=== PATIENT | female | born 1940 | race Hispanic/Latino ===

== ENCOUNTER 2017-11-11 19:44 | Inpatient (IN) | payer MEDICARE, BC ==
--- NOTE | 2017-11-11 20:05 | ED PDOC ---
Psych Transfer Clearance - Clearance Statement Clearance Statement: Reviewed vital signs. Lab results and transfer papers reviewed by Dr Fields, who cleared for transfer on previous shift. Patient clinically stable for psychiatric admission.
[2017-11-11] MEDS ORDERED: Bismuth Subsalicylate 262 mg/15 ml Sus (240 ml) PO PRN (20:44)
[2017-11-11] MEDS ORDERED: Magnesium Hydroxide Susp 30 ml UD PO PRN (20:44)
--- NOTE | 2017-11-11 20:58 | PCM.BM ---
<Cassie Nye P - Last Filed: 11/11/17 20:59> Treatment Plan Problems - Problems identified on initial assessmt Agitated/aggressive behavior Date Initiated: 11/11/17 Time Initiated: 20:55 Assessment reference: NA Status: Active Medication nonadherence Date Initiated: 11/11/17 Time Initiated: 20:58 Assessment reference: NA Status: Active Treatment assets and liabiliti Patient Liabilities: poor support system, imparied memory - Milieu Protocol Maintain good personal hygiene: daily Encourage regular showers, daily Remind patient to perform daily oral care, daily Assist patient to perform ADL's Conduct patient checks and document Observation sheet: Q15 minutes Maintain personal safety: every shift Educate patient to report safety concerns to staff, every shift Monitor environment for contraband/sharps Medication safety: Monitor for expected outcome, potential side effects: every shift, Assess barriers to learning: every shift, Assess readiness for medication education: every shift <Orly Mathur - Last Filed: 11/12/17 08:08> - Diagnosis (1) Dementia with behavioral disturbance Status: Acute Interventions: Medication management, Individual and group therapy, Psychoeducation 11/12/17 08:08 <Allyson Barton M - Last Filed: 11/12/17 12:14> Family Contact Family contact: Patient agrees to contact, Family has been contacted by patient , Telephone contact initiated by staff Family contact name: Aguilar Fernandez (Legal Guardian) Family contacted how many times per week?: 2 Family contact comment: [phone] - Outside Agency [facility][Note 3] involvment: Information-sharing Agency contact number: - Goals for Treatment Patient goals for treatment: Pt to be encouraged to attend activity and clinical groups 3-5x per week to identify at least 2 contributing factors to increased agitation, irritability, and aggression. Psycho-education to be provided to patient/family regarding benefits of medications and treatment adherence. Pt to be encouraged to participate in group milieu to develop effective coping skills to reduce aggression and reduce psychiatric hospitalizations. Coordinate discharge resource needs by providing referral for psychiatric treatment follow up in the community. Discharge/Continuing Care - Education Needs Education Needs: Family Medication, Family Diagnosis/Disease Process, Family Coping Skills, Family Placement options, Family Community resources, Family Activities of Daily Living, Family Uses of Medical Equipment, Family Personal Hygiene/Grooming, Family Aftercare Safety Plan, Patient Coping Skills, Patient Uses of Medical Equipment, Patient Personal Hygiene/Grooming, Patient Aftercare Safety Plan - Discharge Discharge Criteria: Tolerates medication w/o severe side effects, Free of agitation, Normal sleep pattern, Ability to care for self, Reduction of target symptoms Discharge to:: Alf - Additional Comments 11/12/17 11:33 Pt discussed in team meeting. Initially pt was agreeable to attend team meeting ; pt assisted by RN, Melinda Hernandez and once pt entered the room pt stated "I wish you the best of luck and thank you for being polite polite." Pt refused to sit down and requested to be brought back to her room. Pt exited room with the assistance of RN. Reason for hospitalization reviewed. Pt's social and medical issues reviewed. Pt's medications reviewed. Tx plan reviewed and discussed. SW to contact legal guardian. SW to continue to follow case. - Treatment Team Participation Discussed with Family/SO: No Was Patient/Family/SO present at Treatment Team Meeting: Yes
[2017-11-11 23:57] LABS: URINE BACTERIA FEW (<OCC); URINE BILIRUBIN NEGATIVE (NEGATIVE); URINE BLOOD MODERATE (NEGATIVE); URINE CLARITY TURBID (Clear); URINE COLOR YELLOW (YELLOW); URINE GLUCOSE (UA) NEG (Normal); URINE LEUKOCYTE ESTERASE LARGE Leu/uL (Negative); URINE PROTEIN 30 mg/dL (NEGATIVE); WBC CLUMPS MANY /hpf
--- NOTE | 2017-11-12 08:08 | PCM.PSYCH ---
Initial Psychiatric Evaluation - Initial Psychiatric Evaluation Type of Admission: Voluntary Legal Status: DPOA Chief Complaint (in patient's own words): Behavioral disturbances Patient's Reaction to Hospitalization: History obtained from chart; patient is a poor historian and unwilling to talk w / continuity writer HPI: 77 yo female w/ h/o dementia, transferred from [facility] where she was sent from [facility] due to worsening agitation, aggression and attempting to elope from the home. At this time, patient is irritable w/ continuity writer, refusing to speak w/ continuity writer, stating that continuity writer should not have woken her up and that she does not speak w/ strangers. PPHx: H/o Dementia, currently being treated w/ Aricept 5 mg PO HS and Seroquel 25 mg PO HS PMHx: Seizure d/o, h/o recurrent falls, HLD, GERD, +Current UTI ALL: Latex, Cats SHx: Resident at retirement, has POA Current Medications: Active Medications Generic Name Dose Route Start Last Admin Trade Name Freq PRN Reason Stop Dose Admin Acetaminophen 650 mg 11/11/17 20:44 Tylenol 325mg Tab PO Q4 PRN Pain, moderate (4-7) Al Hydrox/Mg Hydrox/Simethicone 30 ml 11/11/17 20:44 Maalox Plus 30 Ml PO Q4 PRN Dyspepsia Anastrozole 1 mg 11/12/17 09:00 Arimidex 1 Mg Tab PO DAILY TIFFANIE Aspirin 81 mg 11/12/17 09:00 Ecotrin PO DAILY TIFFANIE Atorvastatin Calcium 40 mg 11/11/17 22:00 11/11/17 21:44 Lipitor PO Not Given HS TIFFANIE Bismuth Subsalicylate 524 mg 11/11/17 20:44 Pepto-Bismol PO Q4 PRN Diarrhea Donepezil HCl 5 mg 11/11/17 22:00 11/11/17 21:44 Aricept PO Not Given HS TIFFANIE Levetiracetam 750 mg 11/12/17 09:00 Keppra PO BID TIFFANIE Lorazepam 0.5 mg 11/11/17 20:43 Ativan IM Q6H PRN for severe agitation Lorazepam 0.5 mg 11/11/17 20:44 Ativan PO 11/25/17 20:45 HS PRN Insomnia Lorazepam 0.5 mg 11/11/17 20:44 Ativan PO 11/25/17 20:45 Q6 PRN Anixety/Agitation Magnesium Hydroxide 30 ml 11/11/17 20:44 Milk Of Magnesia PO HS PRN Constipation Pantoprazole Sodium 40 mg 11/12/17 09:00 Protonix Ec Tab PO DAILY TIFFANIE Trazodone HCl 50 mg 11/11/17 22:00 11/11/17 21:14 Desyrel PO 50 mg HS TIFFANIE Administration Trimethoprim/Sulfamethoxazole 1 tab 11/12/17 09:00 Bactrim Ds Tab PO Q12 TIFFANIE Protocol Past Psychiatric History - Past Psychiatric History Pertinent Medical Hx (Current Medical&Sleep Prob, Allergies): Allergies Allergy/AdvReac Type Severity Reaction Status Date / Time latex Allergy Verified 03/22/17 13:01 CATS Allergy Uncoded 03/22/17 13:01 Anastrozole [Arimidex 1 mg Tab] 1 mg PO DAILY tab 03/26/17 Donepezil [Aricept] 5 mg PO HS tab 03/26/17 QUEtiapine [Seroquel] 25 mg PO HS tab 03/26/17 Aspirin [Ecotrin] 81 mg PO DAILY #30 tabec 08/13/17 Rosuvastatin Calcium [Crestor] 20 mg PO HS #30 tab 08/13/17 Pantoprazole [Protonix EC Tab] 40 mg PO DAILY ect 11/10/17 levETIRAcetam [Keppra] 750 mg PO BID tab 11/10/17 Review of Systems - Psychiatric Psychiatric: As Per HPI, Confusion, Difficulty Concentrating, Irritability, Memory Loss, Mood Swings, Other (Agitation/aggression) Mental Status Examination - Personal Presentation Personal Presentation: Looks stated age - Affect Affect: Constricted, Other (Irritable) - Motor Activity Motor Activity: Calm - Reliability in Providing Information Reliability in Providing Information: Poor, due to cognitve impairment - Speech Speech: Coherent - Mood Mood: Other (Irritated) - Formal Thought Process Formal Thought Process: Loosening of associations - Hallucinations/Delusions Additional comments: Denies AH/VH - Obsessions/Compulsions Obsessions: No Compulsions: No - Cognitive Functions Orientation: Person Attention/Concentration: Easily distracted Judgement: Imparied, as evidence by: Poor judgement, Imparied, as evidence by: Lack of insight into illness Memory: Recent impaired, as evidence by: Inability to recall events of the day, Recent imparied as evidence by:Inability to complete 3/3 object recall, Remote impaired as evidenced by: Inability to recall sig life events, Remote impaired as evidenced by: Inability to recall historical events - Risk Risk: Diminished functioning - Strength & Assets Inventory Strength & Assets Inventory: Life experience - Limitations Limitations: Decreased memory, recent DSM 5 DX - DSM 5 DSM 5 Diagnosis: Dementia w/ Behavioral Disturbances - Recommended/Plan of Treatment Treatment Recommendations and Plan of Treatment: Dementia w/ Behavioral Disturbances; Behavioral disturbances could be exacerbated by acute UTI -Admit to geriatric psychiatry unit -Individual and group therapy -Obtain collateral history -Psychoeducation -Continue Aricept -Increase Seroquel to 50 mg PO HS -Medicine consult; patient on treatment for UTI -Disposition planning Projected ELOS: 7-10 days Discharge Plan and Discharge Criteria: Discharge when patient is psychiatrically stable - Smoking Cessation Smoking Cessation Initiated: No Reason for not providing: Not indicated
[2017-11-12] MEDS ORDERED: RISPERIDONE 0.25 MG ODT PO PRN (10:00)
[2017-11-12] MEDS: Pantoprazole 40 mg EC Tab PO SCH (10:39)
[2017-11-12] MEDS: Tmp-Smz 800 mg-160 mg DS Tab PO SCH ×3 (10:40→21:38)
[2017-11-13] MEDS: Tmp-Smz 800 mg-160 mg DS Tab PO SCH ×2 (10:50→21:00)
[2017-11-13] MEDS: Pantoprazole 40 mg EC Tab PO SCH (10:51)
--- NOTE | 2017-11-13 12:56 | PCM.PYCHPN ---
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 Medication Change: No Medical Record Reviewed: Yes Mental Status Examination - Cognitive Function Orientation: Person Memory: Impaired Attention: WNL Concentration: Poor Association: Loose Decription of patient's judgement and insights: poor insight - Mood Mood: Neutral, Other (Irritated) - Affect Affect: Constricted, Other (Irritable) - Speech Additional comments: over productive - Formal Thought Process Formal Thought Process: Loosening of associations Psychotic Thoughts and Behaviors: pt denied perceptual disturbances, non elicited - Suicidal Ideation Suicidal Ideation: No - Homicidal Ideation Homicidal Ideation: No Goal/Treatment Plan - Goal/Treatment Plan Need for Continued Stay: Remain at risks for inpatient hospitalization, Discharge may exacerbated symptoms, Severe functional impairment Progress Toward Problem(s) and Goals/Treatment Plan: continue current medications' group and supportive therapy
[2017-11-14] MEDS: Tmp-Smz 800 mg-160 mg DS Tab PO SCH ×2 (08:10→21:01)
[2017-11-14] MEDS: Pantoprazole 40 mg EC Tab PO SCH (08:11)
--- NOTE | 2017-11-14 14:19 | PCM.PYCHPN ---
Psychiatric Progress Note - Psychiatric Progress Note Patient seen today, length of contact: pt evaluated discussed with team chart reviewed Patient Chief Complaint: I am eating breakfast Problems Identified/Issues Discussed: pt seen in bed, apparently confused , oriented to person only , reported by staff last evening to be irritable,trying to get out of be and wander , possible sundowning during , no noted side effectsof medications, with partial compliance DSM 5 Symptoms Update: Major neurocognitive disorder Moderate to severe Medication Change: No Medical Record Reviewed: Yes Mental Status Examination - Cognitive Function Orientation: Person Memory: Impaired Attention: WNL Concentration: Poor Association: Loose Decription of patient's judgement and insights: poor insight - Mood Mood: Neutral, Other (Irritated) - Affect Affect: Constricted, Other (Irritable) - Formal Thought Process Formal Thought Process: Loosening of associations Psychotic Thoughts and Behaviors: pt denied perceptual disturbances, non elicited - Suicidal Ideation Suicidal Ideation: No - Homicidal Ideation Homicidal Ideation: No Goal/Treatment Plan - Goal/Treatment Plan Need for Continued Stay: Remain at risks for inpatient hospitalization, Discharge may exacerbated symptoms, Severe functional impairment Progress Toward Problem(s) and Goals/Treatment Plan: continuewith seroquel 50mg qhs discontinue risperidone and start seroquel 12.5mg q12 prn group and supportive therapy
[2017-11-14] MEDS: Divalproex 125 mg Sprinkle Capsule PO SCH (16:07)
[2017-11-15] MEDS: Divalproex 125 mg Sprinkle Capsule PO SCH ×2 (08:22→16:18)
[2017-11-15] MEDS: Tmp-Smz 800 mg-160 mg DS Tab PO SCH ×2 (08:22→23:57)
[2017-11-15] MEDS: Pantoprazole 40 mg EC Tab PO SCH (08:24)
--- NOTE | 2017-11-15 10:00 | PCM.PYCHPN ---
Psychiatric Progress Note - Psychiatric Progress Note Patient seen today, length of contact: Patient evaluated, case discussed with team, chart reviewed Patient Chief Complaint: Behavioral disturbances Problems Identified/Issues Discussed: Patient continues to be irritable and labile. She is not cooperative with interview and difficult to redirect at times. She has chronic poor insight/ judgment due to dementia Medication Change: No Medical Record Reviewed: Yes Consults ordered or reviewed: Medicine consult Mental Status Examination - Cognitive Function Orientation: Person Memory: Impaired Attention: Poor Concentration: Poor Association: Loose Fund of Knowledge: Poor Decription of patient's judgement and insights: Poor I/J - Mood Mood: Neutral - Affect Affect: Constricted - Speech Speech: Appropriate - Formal Thought Process Formal Thought Process: Loosening of associations Psychotic Thoughts and Behaviors: NO AH/VH - Suicidal Ideation Suicidal Ideation: No - Homicidal Ideation Homicidal Ideation: No Goal/Treatment Plan - Goal/Treatment Plan Need for Continued Stay: Remain at risks for inpatient hospitalization, Discharge may exacerbated symptoms, Severe functional impairment Progress Toward Problem(s) and Goals/Treatment Plan: Dementia w/ Behavioral Disturbances; Behavioral disturbances could be exacerbated by acute UTI -Individual and group therapy -Psychoeducation -Continue Aricept 5 mg PO HS -Continue Seroquel to 50 mg PO HS -Continue Depakote 125 mg PO BID; will titrate as clinically indicated -Continue Trazodone 50 mg PO HS -Medicine consult; patient on treatment for UTI -Disposition planning Estimated Date of D/C: 11/19/17
--- NOTE | 2017-11-15 12:09 | CP.PCM.CON ---
History of Present Illness - History of Present Illness History of Present Illness: 77 yo female with history of dementia admitted to [facility] because of agitation. Patient was seen at [facility] after she was sent from [facility]. Patient refused further interview claiming every thing was in her record. Review of Systems - Review of Systems Systems not reviewed;Unavailable: Dementia, Uncooperative Past Patient History - Infectious Disease Hx of Infectious Diseases: None - Past Medical History & Family History Past Medical History?: Yes - Past Social History Smoking Status: Never Smoked Alcohol: None Drugs: Denies Home Situation {Lives}: Half-Way - CARDIAC Hx Cardiac Disorders: No Hx Hypertension: No - PULMONARY Hx Tuberculosis: No - NEUROLOGICAL Hx Seizures: Yes (epilepsy) - HEENT Hx HEENT Problems: Yes Hx Cataracts: Yes - RENAL Hx Chronic Kidney Disease: No - ENDOCRINE/METABOLIC Hx Endocrine Disorders: No - HEMATOLOGICAL/ONCOLOGICAL Hx Cancer: No Hx Human Immunodeficiency Virus (HIV): No - INTEGUMENTARY Hx Dermatological Problems: No - MUSCULOSKELETAL/RHEUMATOLOGICAL Hx Falls: Yes - GASTROINTESTINAL Hx Gastrointestinal Disorders: No - GENITOURINARY/GYNECOLOGICAL Hx Sexually Transmitted Disorders: No - PSYCHIATRIC Hx Anxiety: Yes Hx Substance Use: No - SURGICAL HISTORY Hx Surgeries: Yes Hx Cataract Extraction: Yes (CATARACT EXT LEFT EYE WITH IOLI) Hx Mastectomy: Yes (LUMPECTOMY LEFT BREAST) Hx Tubal Ligation: Yes - ANESTHESIA Hx Anesthesia: Yes Hx Anesthesia Reactions: No Hx Malignant Hyperthermia: No Meds Allergies/Adverse Reactions: Allergies Allergy/AdvReac Type Severity Reaction Status Date / Time latex Allergy Verified 03/22/17 13:01 CATS Allergy Uncoded 03/22/17 13:01 - Medications Medications: Current Medications Acetaminophen (Tylenol 325mg Tab) 650 mg PO Q4 PRN PRN Reason: Pain, moderate (4-7) Al Hydrox/Mg Hydrox/Simethicone (Maalox Plus 30 Ml) 30 ml PO Q4 PRN PRN Reason: Dyspepsia Anastrozole (Arimidex 1 Mg Tab) 1 mg PO DAILY [facility] Last Admin: 11/15/17 08:26 Dose: 1 mg Aspirin (Ecotrin) 81 mg PO DAILY [facility] Last Admin: 11/15/17 08:22 Dose: 81 mg Atorvastatin Calcium (Lipitor) 40 mg PO HS [facility] Last Admin: 11/14/17 21:01 Dose: 40 mg Bismuth Subsalicylate (Pepto-Bismol) 524 mg PO Q4 PRN PRN Reason: Diarrhea Divalproex Sodium (Depakote Sprinkles) 125 mg PO BID [facility] Last Admin: 11/15/17 08:22 Dose: 125 mg Donepezil HCl (Aricept) 5 mg PO HS [facility] Last Admin: 11/14/17 21:01 Dose: 5 mg Levetiracetam (Keppra) 750 mg PO BID [facility] Last Admin: 11/15/17 08:21 Dose: 750 mg Lorazepam (Ativan) 0.5 mg IM Q6H PRN PRN Reason: for severe agitation Lorazepam (Ativan) 0.5 mg PO HS PRN PRN Reason: Insomnia Stop: 11/25/17 20:45 Lorazepam (Ativan) 0.5 mg PO Q6 PRN PRN Reason: Anixety/Agitation Stop: 11/25/17 20:45 Last Admin: 11/15/17 08:30 Dose: 0.5 mg Magnesium Hydroxide (Milk Of Magnesia) 30 ml PO HS PRN PRN Reason: Constipation Pantoprazole Sodium (Protonix Ec Tab) 40 mg PO DAILY [facility] Last Admin: 11/15/17 08:24 Dose: 40 mg Quetiapine Fumarate (Seroquel) 50 mg PO [facility] Last Admin: 11/14/17 21:01 Dose: 50 mg Trazodone HCl (Desyrel) 50 mg PO [facility] Last Admin: 11/14/17 21:01 Dose: 50 mg Trimethoprim/Sulfamethoxazole (Bactrim Ds Tab) 1 tab PO Q12 [facility] PRN Reason: Protocol Last Admin: 11/15/17 08:22 Dose: 1 tab Physical Exam - Constitutional Appears: No Acute Distress - Head Exam Head Exam: ATRAUMATIC - Eye Exam Eye Exam: absent: Scleral icterus - ENT Exam ENT Exam: Mucous Membranes Moist - Neck Exam Neck exam: Negative for: Meningismus - Respiratory Exam Respiratory Exam: absent: Rales, Rhonchi, Wheezes, Respiratory Distress - Cardiovascular Exam Cardiovascular Exam: REGULAR RHYTHM, +S1, +S2 - GI/Abdominal Exam GI & Abdominal Exam: Soft. absent: Tenderness - Rectal Exam Rectal Exam: Deferred - Back Exam Back exam: absent: tenderness - Neurological Exam Neurological exam: Alert - Psychiatric Exam Psychiatric exam: Normal Affect - Skin Skin Exam: Dry, Intact Results - Vital Signs Recent Vital Signs: Last Vital Signs Temp 96.6 F L 11/15/17 05:23 Pulse 76 11/15/17 05:23 Resp 18 11/15/17 05:23 BP 124/63 11/15/17 05:23 Pulse Ox 100 11/11/17 20:27 Assessment & Plan (1) Dementia with behavioral disturbance Status: Acute Comment: psyche is managing (2) UTI (urinary tract infection) Status: Acute Comment: Cipro 500mg PO BID
--- NOTE | 2017-11-16 09:00 | PCM.PYCHPN ---
Psychiatric Progress Note - Psychiatric Progress Note Patient seen today, length of contact: Patient evaluated, case discussed with team, chart reviewed Patient Chief Complaint: Behavioral disturbances Problems Identified/Issues Discussed: Patient continues to be irritable and labile. She does not want to talk w/ instructional writer. She has chronic poor insight/judgment due to dementia. Medication Change: Yes (Increase Depakote to 250 mg PO BID) Medical Record Reviewed: Yes Consults ordered or reviewed: Medicine consult Mental Status Examination - Cognitive Function Orientation: Person Memory: Impaired Attention: Poor Concentration: Poor Association: Loose Fund of Knowledge: Poor Decription of patient's judgement and insights: Poor I/J - Mood Mood: Neutral - Affect Affect: Constricted - Speech Speech: Appropriate - Formal Thought Process Formal Thought Process: Loosening of associations Psychotic Thoughts and Behaviors: NO AH/VH - Suicidal Ideation Suicidal Ideation: No - Homicidal Ideation Homicidal Ideation: No Goal/Treatment Plan - Goal/Treatment Plan Need for Continued Stay: Remain at risks for inpatient hospitalization, Discharge may exacerbated symptoms, Severe functional impairment Progress Toward Problem(s) and Goals/Treatment Plan: Dementia w/ Behavioral Disturbances; Behavioral disturbances could be exacerbated by acute UTI -Individual and group therapy -Psychoeducation -Continue Aricept 5 mg PO HS -Stop Seroquel; will continue to monitor if Seroquel is needed as Depakote continues to be titrated -Increase Depakote to 250 mg PO BID, will check VPA level 11/19/17 -Continue Trazodone 50 mg PO HS -Medicine consult; patient on treatment for UTI -Disposition planning Estimated Date of D/C: 11/22/17
[2017-11-16 11:36] LABS: SQUAMOUS EPITHIAL < 1 /hpf (0-5); URINE BILIRUBIN NEGATIVE (NEGATIVE); URINE BLOOD NEGATIVE (NEGATIVE); URINE CLARITY CLEAR (Clear); URINE COLOR YELLOW (YELLOW); URINE GLUCOSE (UA) NEG (Normal); URINE LEUKOCYTE ESTERASE NEG Leu/uL (Negative); URINE PROTEIN NEGATIVE (NEGATIVE)
[2017-11-16] MEDS: Divalproex 125 mg Sprinkle Capsule PO SCH ×2 (11:59→21:04)
[2017-11-16] MEDS: Pantoprazole 40 mg EC Tab PO SCH (12:00)
[2017-11-16] MEDS: Tmp-Smz 800 mg-160 mg DS Tab PO SCH ×2 (12:01→21:07)
--- NOTE | 2017-11-16 18:15 | CP.PCM.CON ---
History of Present Illness - History of Present Illness History of Present Illness: Mrs. Mosher is a 77-year-old woman with a past medical history of advanced dementia with behavioral disturbance and seizure disorder, who has been refusing to take Keppra. The patient is already taking depakote. Neurology was consulted to assist with AED management. Review of Systems - Review of Systems All systems: reviewed and no additional remarkable complaints except Past Patient History - Infectious Disease Hx of Infectious Diseases: None - Past Medical History & Family History Past Medical History?: Yes - Past Social History Smoking Status: Never Smoked Alcohol: None Drugs: Denies Home Situation {Lives}: [facility] - CARDIAC Hx Cardiac Disorders: No Hx Hypertension: No - PULMONARY Hx Tuberculosis: No - NEUROLOGICAL Hx Seizures: Yes (epilepsy) - HEENT Hx HEENT Problems: Yes Hx Cataracts: Yes - RENAL Hx Chronic Kidney Disease: No - ENDOCRINE/METABOLIC Hx Endocrine Disorders: No - HEMATOLOGICAL/ONCOLOGICAL Hx Cancer: No Hx Human Immunodeficiency Virus (HIV): No - INTEGUMENTARY Hx Dermatological Problems: No - MUSCULOSKELETAL/RHEUMATOLOGICAL Hx Falls: Yes - GASTROINTESTINAL Hx Gastrointestinal Disorders: No - GENITOURINARY/GYNECOLOGICAL Hx Sexually Transmitted Disorders: No - PSYCHIATRIC Hx Anxiety: Yes Hx Substance Use: No - SURGICAL HISTORY Hx Surgeries: Yes Hx Cataract Extraction: Yes (CATARACT EXT LEFT EYE WITH IOLI) Hx Mastectomy: Yes (LUMPECTOMY LEFT BREAST) Hx Tubal Ligation: Yes - ANESTHESIA Hx Anesthesia: Yes Hx Anesthesia Reactions: No Hx Malignant Hyperthermia: No Meds Allergies/Adverse Reactions: Allergies Allergy/AdvReac Type Severity Reaction Status Date / Time latex Allergy Verified 03/22/17 13:01 CATS Allergy Uncoded 03/22/17 13:01 - Medications Medications: Current Medications Acetaminophen (Tylenol 325mg Tab) 650 mg PO Q4 PRN PRN Reason: Pain, moderate (4-7) Al Hydrox/Mg Hydrox/Simethicone (Maalox Plus 30 Ml) 30 ml PO Q4 PRN PRN Reason: Dyspepsia Anastrozole (Arimidex 1 Mg Tab) 1 mg PO DAILY [facility] Last Admin: 11/16/17 12:04 Dose: 1 mg Aspirin (Ecotrin) 81 mg PO DAILY [facility] Last Admin: 11/16/17 12:02 Dose: 81 mg Atorvastatin Calcium (Lipitor) 40 mg PO HS [facility] Last Admin: 11/15/17 23:57 Dose: Not Given Bismuth Subsalicylate (Pepto-Bismol) 524 mg PO Q4 PRN PRN Reason: Diarrhea Divalproex Sodium (Depakote Sprinkles) 250 mg PO BID [facility] Last Admin: 11/16/17 11:59 Dose: 250 mg Donepezil HCl (Aricept) 5 mg PO HS [facility] Last Admin: 11/15/17 23:57 Dose: 5 mg Levetiracetam (Keppra) 750 mg PO BID [facility] Last Admin: 11/16/17 12:00 Dose: 750 mg Lorazepam (Ativan) 0.5 mg IM Q6H PRN PRN Reason: for severe agitation Lorazepam (Ativan) 0.5 mg PO HS PRN PRN Reason: Insomnia Stop: 11/25/17 20:45 Lorazepam (Ativan) 0.5 mg PO Q6 PRN PRN Reason: Anixety/Agitation Stop: 11/25/17 20:45 Last Admin: 11/16/17 12:08 Dose: 0.5 mg Magnesium Hydroxide (Milk Of Magnesia) 30 ml PO HS PRN PRN Reason: Constipation Pantoprazole Sodium (Protonix Ec Tab) 40 mg PO DAILY [facility] Last Admin: 11/16/17 12:00 Dose: 40 mg Trazodone HCl (Desyrel) 50 mg PO [facility] Trimethoprim/Sulfamethoxazole (Bactrim Ds Tab) 1 tab PO Q12 [facility] PRN Reason: Protocol Last Admin: 11/16/17 12:01 Dose: 1 tab Physical Exam - Neurological Exam Neurological exam: Abnormal Gait, Altered, CN II-XII Intact - Psychiatric Exam Psychiatric exam: Agitated, Anxious Results - Vital Signs Recent Vital Signs: Last Vital Signs Temp 97.8 F 11/16/17 16:02 Pulse 91 H 11/16/17 16:02 Resp 20 11/16/17 16:02 BP 115/69 11/16/17 16:02 Pulse Ox 100 11/11/17 20:27 - Labs Labs: Laboratory Results - last 24 hr 11/15/17 12:25 Urine Color Yellow Urine Clarity Clear Urine pH 5.0 Ur Specific [place] 1.019 Urine Protein Negative Urine Glucose (UA) Neg Urine Ketones Negative Urine Blood Negative Urine Nitrate Negative Urine Bilirubin Negative Urine Urobilinogen 2.0 H Ur Leukocyte Esterase Neg Urine RBC (Auto) 2 Urine Microscopic WBC 1 Ur Squamous Epith Cells < 1 Assessment & Plan (1) Seizure disorder Assessment and Plan: The patient seems to be refusing to take more than one tablet of Keppra. Since she is agreeing to take Depakote, I recommend the following: Obtain a depakote level to adjust dose (therapeutic range is 50-100). If therapeutic, then keep the same dosing. Otherwise, adjust accordingly. Keppra can be lowered to 500 mg BID (one tablet BID). Thank you. Status: Acute
[2017-11-17] MEDS: Pantoprazole 40 mg EC Tab PO SCH (09:23)
[2017-11-17] MEDS: Divalproex 125 mg Sprinkle Capsule PO SCH ×2 (09:24→16:25)
[2017-11-17] MEDS: Tmp-Smz 800 mg-160 mg DS Tab PO SCH (09:26)
--- NOTE | 2017-11-17 11:34 | PCM.PYCHPN ---
Psychiatric Progress Note - Psychiatric Progress Note Patient seen today, length of contact: Patient evaluated, case discussed with team, chart reviewed Patient Chief Complaint: Behavioral disturbances Problems Identified/Issues Discussed: Patient is currently calm and cooperative w/ bid writer. She has non-linear speech due to chronic dementia. A + O x 1. She continues to have periods of irritability and mood lability. She has chronic poor insight/judgment due to dementia. Medication Change: Yes (Increase Depakote to 250 mg PO Daily/375 mg PO Daily@ 1700; Lower Keppra) Medical Record Reviewed: Yes Consults ordered or reviewed: Medicine consult, Neurology consult Mental Status Examination - Cognitive Function Orientation: Person Memory: Impaired Attention: Poor Concentration: Poor Association: Loose Fund of Knowledge: Poor Decription of patient's judgement and insights: Poor I/J - Mood Mood: Neutral - Affect Affect: Constricted - Speech Speech: Appropriate - Formal Thought Process Formal Thought Process: Loosening of associations Psychotic Thoughts and Behaviors: NO AH/VH - Suicidal Ideation Suicidal Ideation: No - Homicidal Ideation Homicidal Ideation: No Goal/Treatment Plan - Goal/Treatment Plan Need for Continued Stay: Remain at risks for inpatient hospitalization, Discharge may exacerbated symptoms, Severe functional impairment Progress Toward Problem(s) and Goals/Treatment Plan: Dementia w/ Behavioral Disturbances -Individual and group therapy -Psychoeducation -Continue Aricept 5 mg PO HS -Increase Depakote to 250 mg PO Daily/ 375 mg PO Daily@1700, will check VPA level -Continue Trazodone 50 mg PO HS -Medicine consult; treated for UTI -Neurology consult appreciated; will lower Keppra to 500 mg PO BID -Disposition planning Estimated Date of D/C: 11/22/17
[2017-11-17] MEDS ORDERED: Divalproex 125 mg Sprinkle Capsule PO SCH (17:00)
[2017-11-18] MEDS: Divalproex 125 mg Sprinkle Capsule PO SCH ×2 (08:19→17:00)
[2017-11-18] MEDS: Pantoprazole 40 mg EC Tab PO SCH (08:22)
--- NOTE | 2017-11-18 09:34 | PCM.PYCHPN ---
Psychiatric Progress Note - Psychiatric Progress Note Patient seen today, length of contact: Patient evaluated, case discussed with team, chart reviewed Patient Chief Complaint: Behavioral disturbances Problems Identified/Issues Discussed: Patient is currently calm and cooperative w/ data analyst report writer, but she continues to have periods of mood lability, irritability and behavioral disturbances. She has non-linear speech due to chronic dementia. A + O x 1. She has chronic poor insight/judgment due to dementia. Medication Change: No Medical Record Reviewed: Yes Consults ordered or reviewed: Medicine consult, Neurology consult Mental Status Examination - Cognitive Function Orientation: Person Memory: Impaired Attention: Poor Concentration: Poor Association: Loose Fund of Knowledge: Poor Decription of patient's judgement and insights: Poor I/J - Mood Mood: Neutral - Affect Affect: Constricted - Speech Speech: Appropriate - Formal Thought Process Formal Thought Process: Loosening of associations Psychotic Thoughts and Behaviors: NO AH/VH - Suicidal Ideation Suicidal Ideation: No - Homicidal Ideation Homicidal Ideation: No Goal/Treatment Plan - Goal/Treatment Plan Need for Continued Stay: Remain at risks for inpatient hospitalization, Discharge may exacerbated symptoms, Severe functional impairment Progress Toward Problem(s) and Goals/Treatment Plan: Dementia w/ Behavioral Disturbances -Individual and group therapy -Psychoeducation -Continue Aricept 5 mg PO HS -Continue Depakote 250 mg PO Daily/ 375 mg PO Daily@1700, will check VPA level -Continue Trazodone 50 mg PO HS -Medicine consult; treated for UTI -Neurology consult appreciated; Continue Keppra 500 mg PO BID -Disposition planning Estimated Date of D/C: 11/23/17
[2017-11-18 12:00] LABS: HEMOGLOBIN 12.6 g/dL (12.0-16.0); MEAN CELL VOLUME 92.4 fl (81.0-99.0); MEAN CORPUSCULAR HEMOGLOBIN 30.1 pg (27.0-31.0); MEAN CORPUSCULAR HGB CONC 32.5 g/dL (33.0-37.0); RBC 4.21 Mil/uL (3.80-5.20); RED CELL DISTRIBUTION WIDTH 14.7 % (11.5-14.5); WHITE BLOOD COUNT 5.8 K/uL (4.8-10.8)
[2017-11-18 12:18] LABS: ALB/GLOB RATIO 1.3 (1.0-2.1); ALBUMIN 4.2 g/dL (3.5-5.0); ALT/SGPT 37 U/L (9-52); AST/SGOT 40 U/L (14-36); BLOOD UREA NITROGEN 24 mg/dl (7-17); CALCIUM 9.6 mg/dL (8.4-10.2); GFR AFRICAN-AMERICAN > 60; GFR NON-AFRICAN AMERICAN > 60; HDL CHOLESTEROL 52 MG/DL (30-70)
[2017-11-18 12:29] LABS: LDL CHOLESTEROL 52 mg/dL (0-129)
[2017-11-18 12:35] LABS: T4 8.61 ug/dl (5.5-11.0)
[2017-11-18 12:53] LABS: FERRITIN 43.5 ng/Ml (11.1-264.0)
[2017-11-18 22:24] LABS: FOLATE 15.8 ng/mL
[2017-11-19] MEDS: Pantoprazole 40 mg EC Tab PO SCH (08:14)
[2017-11-19] MEDS: Divalproex 125 mg Sprinkle Capsule PO SCH ×2 (08:16→16:48)
--- NOTE | 2017-11-19 11:53 | PCM.BM ---
Treatment Plan Problems - Problems identified on initial assessmt Agitated/aggressive behavior Date Initiated: 11/11/17 Time Initiated: 20:55 Assessment reference: NA Status: Active Medication nonadherence Date Initiated: 11/11/17 Time Initiated: 20:58 Assessment reference: NA Status: Active Treatment assets and liabiliti Patient Liabilities: poor support system, imparied memory - Milieu Protocol Maintain good personal hygiene: daily Encourage regular showers, daily Remind patient to perform daily oral care, daily Assist patient to perform ADL's Conduct patient checks and document Observation sheet: Q15 minutes Maintain personal safety: every shift Educate patient to report safety concerns to staff, every shift Monitor environment for contraband/sharps Medication safety: Monitor for expected outcome, potential side effects: every shift, Assess barriers to learning: every shift, Assess readiness for medication education: every shift Milieu Narrative: Dementia w/ Behavioral Disturbances -Individual and group therapy -Psychoeducation -Continue Aricept 5 mg PO HS -Continue Depakote 250 mg PO Daily/ 375 mg PO Daily@1700, will check VPA level -Continue Trazodone 50 mg PO HS -Medicine consult; treated for UTI -Neurology consult appreciated; Continue Keppra 500 mg PO BID -Disposition planning Family Contact Family involvement: Family/SO is involved Family contact: Patient agrees to contact, Family has been contacted by patient , Telephone contact initiated by staff Family contact name: Aguilar Fernandez - legal guardian - Outside Agency [facility] involvment: Information-sharing Agency contact number: - Goals for Treatment Patient goals for treatment: Pt to be encouraged to attend activity and clinical groups 3-5x per week to identify at least 2 contributing factors to increased agitation, irritability, and aggression. Psycho-education to be provided to patient/family regarding benefits of medications and treatment adherence. Pt to be encouraged to participate in group milieu to develop effective coping skills to reduce aggression and reduce psychiatric hospitalizations. Coordinate discharge resource needs by providing referral for psychiatric treatment follow up in the community. Discharge/Continuing Care - Education Needs Education Needs: Family Medication, Family Diagnosis/Disease Process, Family Coping Skills, Family Placement options, Family Community resources, Family Activities of Daily Living, Family Uses of Medical Equipment, Family Personal Hygiene/Grooming, Family Aftercare Safety Plan, Patient Coping Skills, Patient Uses of Medical Equipment, Patient Personal Hygiene/Grooming, Patient Aftercare Safety Plan - Discharge Discharge Criteria: Tolerates medication w/o severe side effects, Free of agitation, Normal sleep pattern, Ability to care for self, Reduction of target symptoms Discharge to:: Care Home - Additional Comments 11/12/17 11:33 Pt discussed in team meeting. Initially pt was agreeable to attend team meeting ; pt assisted by RN, Melinda Hernandez and once pt entered the room pt stated "I wish you the best of luck and thank you for being polite polite." Pt refused to sit down and requested to be brought back to her room. Pt exited room with the assistance of RN. Reason for hospitalization reviewed. Pt's social and medical issues reviewed. Pt's medications reviewed. Tx plan reviewed and discussed. SW to contact legal guardian. SW to continue to follow case. - Treatment Team Participation Patient/Family/SO Statement: Dementia w/ Behavioral Disturbances -Individual and group therapy -Psychoeducation -Continue Aricept 5 mg PO HS -Continue Depakote 250 mg PO Daily/ 375 mg PO Daily@1700, will check VPA level -Continue Trazodone 50 mg PO HS -Medicine consult; treated for UTI -Neurology consult appreciated; Continue Keppra 500 mg PO BID -Disposition planning Discussed with Family/SO: No Was Patient/Family/SO present at Treatment Team Meeting: Yes Treatment Plan Review Patient participation: No (Pt observed to be resting at this time) Family/SO/Caregiver participation: No Additional Comments: Pt's progress and bx on the unit reviewed and discussed. Pt unable to attend team meeting due to recently being medicated and observed to be resting in her bed. Pt has not exhibited any aggression/combative bx's on the unit. Pt is irritable and easily agitated with re-directed. Pt is less intrusive and able to follow re-direction. Pt's memory remains severely impaired. Pt wanders the unit and often forgets where her room is. Pt is intermittently compliant with medications. Pt required much encouragement and motivation to take her medications. SW to continue to follow case and once stabilized to refer back to [facility] for placement. Pt to be encouraged and motivated to attend clinical and activity groups. Staff to continue to to observe pt and encourage medication compliance. - Problem Agitated/aggressive behavior Date Initiated: 11/11/17 Time Initiated: 20:55 Progress toward outcomes: improved (Pt has not exhibited marcus ggressive bx's on the unit. Pt is easily agitated and irritible when re-directed. Pt has periods of verbal abuse towards staff members, such as calling names.) Medication nonadherence Date Initiated: 11/11/17 Time Initiated: 20:58 Progress toward outcomes: unchanged (Pt intermittently compliant with medications.) - Discharge / Continuing Care Discharge to:: Care Home Behavioral Health Services: Other (Medication management; structed group environment) Health Needs: Follow up care/test, Doctor appointments, Special equipment, Medications/Rx, Educational, Recreational/Social
[2017-11-19] MEDS: Cholecalciferol 400 Intl Units Tab PO SCH (12:14)
--- NOTE | 2017-11-19 12:42 | PCM.PYCHPN ---
Psychiatric Progress Note - Psychiatric Progress Note Patient seen today, length of contact: Patient evaluated, case discussed with team, chart reviewed Patient Chief Complaint: Behavioral disturbances Problems Identified/Issues Discussed: Patient is calmer and less irritable towards board writer, but she continues to have periods of mood lability. Patient frequently refuses medications and staff have to approach her several times throughout the day to encourage her to take medications. She has non-linear speech due to chronic dementia. A + O x 1. She has chronic poor insight/judgment due to dementia. Diagnostic Results: VPA 34.6 on 11/18/17 Medication Change: No Medical Record Reviewed: Yes Consults ordered or reviewed: Medicine consult, Neurology consult Mental Status Examination - Cognitive Function Orientation: Person Memory: Impaired Attention: Poor Concentration: Poor Association: Loose Fund of Knowledge: Poor Decription of patient's judgement and insights: Poor I/J - Mood Mood: Neutral - Affect Affect: Constricted - Speech Speech: Appropriate - Formal Thought Process Formal Thought Process: Loosening of associations Psychotic Thoughts and Behaviors: NO AH/VH - Suicidal Ideation Suicidal Ideation: No - Homicidal Ideation Homicidal Ideation: No Goal/Treatment Plan - Goal/Treatment Plan Need for Continued Stay: Remain at risks for inpatient hospitalization, Discharge may exacerbated symptoms, Severe functional impairment Progress Toward Problem(s) and Goals/Treatment Plan: Dementia w/ Behavioral Disturbances -Individual and group therapy -Psychoeducation -Continue Aricept 5 mg PO HS -Continue Depakote 250 mg PO Daily/ 375 mg PO Daily@1700, VPA 34.6 on 11/18/17 -Continue Trazodone 50 mg PO HS -Medicine consult; treated for UTI -Neurology consult appreciated; Continue Keppra 500 mg PO BID -Disposition planning Estimated Date of D/C: 11/23/17
[2017-11-20] MEDS: Divalproex 125 mg Sprinkle Capsule PO SCH ×2 (08:30→16:23)
[2017-11-20] MEDS: Pantoprazole 40 mg EC Tab PO SCH (08:31)
[2017-11-20] MEDS: Cholecalciferol 400 Intl Units Tab PO SCH (08:31)
--- NOTE | 2017-11-20 10:10 | PCM.PYCHPN ---
Psychiatric Progress Note - Psychiatric Progress Note Patient seen today, length of contact: Patient evaluated, case discussed with team, chart reviewed Patient Chief Complaint: Behavioral disturbances Problems Identified/Issues Discussed: Patient slept 6 hours last night. She is calmer and less irritable towards policy writer sales, and has less periods of mood lability. Patient continues to refuse medications intermittently and staff have to approach her several times throughout the day to encourage her to take medications. She has non-linear speech due to chronic dementia. A + O x 1. She has chronic poor insight/ judgment due to dementia. Diagnostic Results: VPA 34.6 on 11/18/17 Medication Change: No Medical Record Reviewed: Yes Consults ordered or reviewed: Medicine consult, Neurology consult Mental Status Examination - Cognitive Function Orientation: Person Memory: Impaired Attention: Poor Concentration: Poor Association: Loose Fund of Knowledge: Poor Decription of patient's judgement and insights: Poor I/J - Mood Mood: Neutral - Affect Affect: Constricted - Speech Speech: Appropriate - Formal Thought Process Formal Thought Process: Loosening of associations Psychotic Thoughts and Behaviors: NO AH/VH - Suicidal Ideation Suicidal Ideation: No - Homicidal Ideation Homicidal Ideation: No Goal/Treatment Plan - Goal/Treatment Plan Need for Continued Stay: Remain at risks for inpatient hospitalization, Discharge may exacerbated symptoms, Severe functional impairment Progress Toward Problem(s) and Goals/Treatment Plan: Dementia w/ Behavioral Disturbances -Individual and group therapy -Psychoeducation -Continue Aricept 5 mg PO HS -Continue Depakote 250 mg PO Daily/ 375 mg PO Daily@1700, VPA 34.6 on 11/18/17 -Continue Trazodone 50 mg PO HS -Medicine consult; treated for UTI -Neurology consult appreciated; Continue Keppra 500 mg PO BID -Disposition planning Estimated Date of D/C: 11/23/17
--- NOTE | 2017-11-21 09:59 | PCM.PYCHPN ---
Psychiatric Progress Note - Psychiatric Progress Note Patient seen today, length of contact: Patient evaluated, case discussed with team, chart reviewed Patient Chief Complaint: Behavioral disturbances Problems Identified/Issues Discussed: Patient slept well overnight. She continues to have periods of mood lability, is confused at times due to chronic dementia and is difficult to redirect. Patient continues to refuse medications intermittently and staff have to approach her several times throughout the day to encourage her to take medications. She has non-linear speech due to chronic dementia. A + O x 1. She has chronic poor insight/judgment due to dementia. Diagnostic Results: VPA 34.6 on 11/18/17 Medication Change: Yes (Increase Depakote to 250 mg PO AM/ 500 mg PO Daily@1700) Medical Record Reviewed: Yes Consults ordered or reviewed: Medicine consult, Neurology consult Mental Status Examination - Cognitive Function Orientation: Person Memory: Impaired Attention: Poor Concentration: Poor Association: Loose Fund of Knowledge: Poor Decription of patient's judgement and insights: Poor I/J - Mood Mood: Neutral - Affect Affect: Constricted - Speech Speech: Appropriate - Formal Thought Process Formal Thought Process: Loosening of associations Psychotic Thoughts and Behaviors: NO AH/VH - Suicidal Ideation Suicidal Ideation: No - Homicidal Ideation Homicidal Ideation: No Goal/Treatment Plan - Goal/Treatment Plan Need for Continued Stay: Remain at risks for inpatient hospitalization, Discharge may exacerbated symptoms, Severe functional impairment Progress Toward Problem(s) and Goals/Treatment Plan: Dementia w/ Behavioral Disturbances -Individual and group therapy -Psychoeducation -Continue Aricept 5 mg PO HS -Increase Depakote 250 mg PO Daily/ 500 mg PO Daily@1700, VPA 34.6 on 11/18/17 -Continue Trazodone 50 mg PO HS -Medicine consult; treated for UTI -Neurology consult appreciated; Continue Keppra 500 mg PO BID -Disposition planning Estimated Date of D/C: 11/24/17
[2017-11-21] MEDS: Pantoprazole 40 mg EC Tab PO SCH (10:02)
[2017-11-21] MEDS: Cholecalciferol 400 Intl Units Tab PO SCH (10:02)
[2017-11-21] MEDS: Divalproex 125 mg Sprinkle Capsule PO SCH ×2 (10:02→16:48)
[2017-11-22] MEDS: Cholecalciferol 400 Intl Units Tab PO SCH (08:09)
[2017-11-22] MEDS: Pantoprazole 40 mg EC Tab PO SCH (08:09)
[2017-11-22] MEDS: Divalproex 125 mg Sprinkle Capsule PO SCH ×2 (08:11→16:33)
--- NOTE | 2017-11-22 11:33 | PCM.PYCHPN ---
Psychiatric Progress Note - Psychiatric Progress Note Patient seen today, length of contact: Patient evaluated, case discussed with team, chart reviewed Patient Chief Complaint: "I'm fine." Problems Identified/Issues Discussed: Patient is improving clinically. She is less irritable. No periods of aggression or agitation. No threatening behaviors. Patient is approaching her baseline of functioning. A + O x 1. She has chronic poor insight/judgment due to dementia. Diagnostic Results: VPA 34.6 on 11/18/17 Medication Change: No Medical Record Reviewed: Yes Consults ordered or reviewed: Medicine consult, Neurology consult Mental Status Examination - Cognitive Function Orientation: Person Memory: Impaired Attention: Poor Concentration: Poor Association: Loose Fund of Knowledge: Poor Decription of patient's judgement and insights: Poor I/J - Mood Mood: Neutral - Affect Affect: Broad - Speech Speech: Appropriate - Formal Thought Process Formal Thought Process: Loosening of associations Psychotic Thoughts and Behaviors: NO AH/VH - Suicidal Ideation Suicidal Ideation: No - Homicidal Ideation Homicidal Ideation: No Goal/Treatment Plan - Goal/Treatment Plan Need for Continued Stay: Discharge may exacerbated symptoms, Severe functional impairment Progress Toward Problem(s) and Goals/Treatment Plan: Dementia w/ Behavioral Disturbances -Individual and group therapy -Psychoeducation -Continue Aricept 5 mg PO HS -Continue Depakote 250 mg PO Daily/ 500 mg PO Daily@1700, VPA 34.6 on 11/18/17 -Continue Trazodone 50 mg PO HS -Medicine consult; treated for UTI -Neurology consult appreciated; Continue Keppra 500 mg PO BID -Disposition planning Estimated Date of D/C: 11/24/17
[2017-11-23] MEDS: Divalproex 125 mg Sprinkle Capsule PO SCH ×2 (08:07→16:10)
[2017-11-23] MEDS: Cholecalciferol 400 Intl Units Tab PO SCH (08:08)
[2017-11-23] MEDS: Pantoprazole 40 mg EC Tab PO SCH (08:08)
--- NOTE | 2017-11-23 08:31 | PCM.PYCHPN ---
Psychiatric Progress Note - Psychiatric Progress Note Patient seen today, length of contact: Patient evaluated, case discussed with team, chart reviewed Patient Chief Complaint: "I'm fine." Problems Identified/Issues Discussed: Patient continues to improve clinically. She is at her baseline of functioning and is psychiatrically stable for referral to fdc facility. No periods of aggression or agitation. No threatening behaviors. A + O x 1. She has chronic poor insight/judgment due to dementia. Diagnostic Results: VPA 34.6 on 11/18/17 Medication Change: No Medical Record Reviewed: Yes Consults ordered or reviewed: Medicine consult, Neurology consult Mental Status Examination - Cognitive Function Orientation: Person Memory: Impaired Attention: Poor Concentration: Poor Association: Loose Fund of Knowledge: Poor Decription of patient's judgement and insights: Poor I/J - Mood Mood: Neutral - Affect Affect: Broad - Speech Speech: Appropriate - Formal Thought Process Formal Thought Process: Loosening of associations Psychotic Thoughts and Behaviors: NO AH/VH - Suicidal Ideation Suicidal Ideation: No - Homicidal Ideation Homicidal Ideation: No Goal/Treatment Plan - Goal/Treatment Plan Need for Continued Stay: Severe functional impairment Progress Toward Problem(s) and Goals/Treatment Plan: Dementia w/ Behavioral Disturbances; Patient is psychiatrically stable for referral to fdc facility. -Individual and group therapy -Psychoeducation -Continue Aricept 5 mg PO HS -Continue Depakote 250 mg PO Daily/ 500 mg PO Daily@1700, VPA 34.6 on 11/18/17 -Continue Trazodone 50 mg PO HS -Medicine consult; treated for UTI -Neurology consult appreciated; Continue Keppra 500 mg PO BID -Disposition planning Estimated Date of D/C: 11/24/17
[2017-11-24] MEDS: Pantoprazole 40 mg EC Tab PO SCH (08:09)
[2017-11-24] MEDS: Divalproex 125 mg Sprinkle Capsule PO SCH ×2 (08:09→16:11)
[2017-11-24] MEDS: Cholecalciferol 400 Intl Units Tab PO SCH (08:10)
--- NOTE | 2017-11-24 08:55 | PCM.PYCHPN ---
Psychiatric Progress Note - Psychiatric Progress Note Patient seen today, length of contact: Patient evaluated, case discussed with team, chart reviewed Patient Chief Complaint: "I'm fine." Problems Identified/Issues Discussed: Patient is at her baseline of functioning and is psychiatrically stable for referral to longterm facility. No periods of aggression or agitation. No threatening behaviors. A + O x 1. She has chronic poor insight/judgment due to dementia. Diagnostic Results: VPA 34.6 on 11/18/17 Medication Change: Yes (Increase Depakote) Medical Record Reviewed: Yes Consults ordered or reviewed: Medicine consult, Neurology consult Mental Status Examination - Cognitive Function Orientation: Person Memory: Impaired Attention: Poor Concentration: Poor Association: Loose Fund of Knowledge: Poor Decription of patient's judgement and insights: Poor I/J - Mood Mood: Neutral - Affect Affect: Broad - Speech Speech: Appropriate - Formal Thought Process Formal Thought Process: Loosening of associations Psychotic Thoughts and Behaviors: NO AH/VH - Suicidal Ideation Suicidal Ideation: No - Homicidal Ideation Homicidal Ideation: No Goal/Treatment Plan - Goal/Treatment Plan Need for Continued Stay: Severe functional impairment Progress Toward Problem(s) and Goals/Treatment Plan: Dementia w/ Behavioral Disturbances; Patient is psychiatrically stable for referral to longterm facility. -Individual and group therapy -Psychoeducation -Continue Aricept 5 mg PO HS -Increase Depakote to 750 mg PO BID for seizure control and mood stabilization; case discussed with Neurologist; VPA 34.6 on 11/18/17, will recheck VPA in 5 days -Continue Trazodone 50 mg PO HS -Medicine consult; treated for UTI -Disposition planning- patient to be referred to longterm facility Estimated Date of D/C: 11/26/17
[2017-11-24] MEDS: Alum-Mag Hydrox-Simethicone Susp (30 mL) PO PRN (19:52)
[2017-11-25] MEDS: Divalproex 125 mg Sprinkle Capsule PO SCH ×2 (09:16→17:06)
[2017-11-25] MEDS: Cholecalciferol 400 Intl Units Tab PO SCH (09:19)
[2017-11-25] MEDS: Pantoprazole 40 mg EC Tab PO SCH (09:19)
--- NOTE | 2017-11-25 09:46 | PCM.PYCHPN ---
Psychiatric Progress Note - Psychiatric Progress Note Patient seen today, length of contact: Patient evaluated, case discussed with team, chart reviewed Patient Chief Complaint: "I'm fine." Problems Identified/Issues Discussed: Patient is at her baseline of functioning and is psychiatrically stable for referral to care home facility. No periods of aggression or agitation. No threatening behaviors. A + O x 1. She has chronic poor insight/judgment due to dementia. Diagnostic Results: VPA 34.6 on 11/18/17 Medication Change: No Medical Record Reviewed: Yes Consults ordered or reviewed: Medicine consult, Neurology consult Mental Status Examination - Cognitive Function Orientation: Person Memory: Impaired Attention: Poor Concentration: Poor Association: Loose Fund of Knowledge: Poor Decription of patient's judgement and insights: Poor I/J - Mood Mood: Neutral - Affect Affect: Broad - Speech Speech: Appropriate - Formal Thought Process Formal Thought Process: Loosening of associations Psychotic Thoughts and Behaviors: NO AH/VH - Suicidal Ideation Suicidal Ideation: No - Homicidal Ideation Homicidal Ideation: No Goal/Treatment Plan - Goal/Treatment Plan Need for Continued Stay: Severe functional impairment Progress Toward Problem(s) and Goals/Treatment Plan: Dementia w/ Behavioral Disturbances; Patient is psychiatrically stable for referral to care home facility. -Individual and group therapy -Psychoeducation -Continue Aricept 5 mg PO HS -Continue [id number] mg PO BID for seizure control and mood stabilization; case discussed with Neurologist; VPA 34.6 on 11/18/17, will recheck VPA in 5 days -Continue Trazodone 50 mg PO HS -Medicine consult; treated for UTI -Disposition planning- in the process of referring to care home facility Estimated Date of D/C: 11/26/17
--- NOTE | 2017-11-26 08:51 | PCM.PYCHPN ---
Psychiatric Progress Note - Psychiatric Progress Note Patient seen today, length of contact: Patient evaluated, case discussed with team, chart reviewed Patient Chief Complaint: "I'm fine." Problems Identified/Issues Discussed: No new events. Patient is at her baseline of functioning and is psychiatrically stable for referral to custodial facility. No periods of aggression or agitation. No threatening behaviors. A + O x 1. She has chronic poor insight/judgment due to dementia. Diagnostic Results: VPA 34.6 on 11/18/17 Medication Change: No Medical Record Reviewed: Yes Consults ordered or reviewed: Medicine consult, Neurology consult Mental Status Examination - Cognitive Function Orientation: Person Memory: Impaired Attention: Poor Concentration: Poor Association: Loose Fund of Knowledge: Poor Decription of patient's judgement and insights: Poor I/J - Mood Mood: Neutral - Affect Affect: Broad - Speech Speech: Appropriate - Formal Thought Process Formal Thought Process: Loosening of associations Psychotic Thoughts and Behaviors: NO AH/VH - Suicidal Ideation Suicidal Ideation: No - Homicidal Ideation Homicidal Ideation: No Goal/Treatment Plan - Goal/Treatment Plan Need for Continued Stay: Severe functional impairment Progress Toward Problem(s) and Goals/Treatment Plan: Dementia w/ Behavioral Disturbances; Patient is psychiatrically stable for referral to custodial facility. -Individual and group therapy -Psychoeducation -Continue Aricept 5 mg PO HS -Continue [id number] mg PO BID for seizure control and mood stabilization; case discussed with Neurologist; VPA 34.6 on 11/18/17, will recheck VPA in 5 days -Continue Trazodone 50 mg PO HS -Medicine consult; treated for UTI -Disposition planning- in the process of referring to custodial facility Estimated Date of D/C: 11/26/17
[2017-11-26] MEDS: Divalproex 125 mg Sprinkle Capsule PO SCH ×2 (10:01→16:23)
[2017-11-26] MEDS: Cholecalciferol 400 Intl Units Tab PO SCH (10:01)
[2017-11-26] MEDS: Pantoprazole 40 mg EC Tab PO SCH (10:02)
--- NOTE | 2017-11-26 11:14 | PCM.BM ---
Treatment Plan Problems - Problems identified on initial assessmt Agitated/aggressive behavior Date Initiated: 11/11/17 Time Initiated: 20:55 Assessment reference: NA Status: Active Medication nonadherence Date Initiated: 11/11/17 Time Initiated: 20:58 Assessment reference: NA Status: Active Treatment assets and liabiliti Patient Liabilities: poor support system, imparied memory - Milieu Protocol Maintain good personal hygiene: daily Encourage regular showers, daily Remind patient to perform daily oral care, daily Assist patient to perform ADL's Conduct patient checks and document Observation sheet: Q15 minutes Maintain personal safety: every shift Educate patient to report safety concerns to staff, every shift Monitor environment for contraband/sharps Medication safety: Monitor for expected outcome, potential side effects: every shift, Assess barriers to learning: every shift, Assess readiness for medication education: every shift Milieu Narrative: Dementia w/ Behavioral Disturbances; Patient is psychiatrically stable for referral to prison facility. -Individual and group therapy -Psychoeducation -Continue Aricept 5 mg PO HS -Continue [id number] mg PO BID for seizure control and mood stabilization; case discussed with Neurologist; VPA 34.6 on 11/18/17, will recheck VPA in 5 days -Continue Trazodone 50 mg PO HS -Medicine consult; treated for UTI -Disposition planning- in the process of referring to prison facility Family Contact Family involvement: Family/SO is involved Family contact: Patient agrees to contact, Family has been contacted by patient , Telephone contact initiated by staff Family contact name: Aguilar Fernandez - legal guardian - Outside Agency [facility] [place] involvment: Information-sharing Agency contact number: - Goals for Treatment Patient goals for treatment: Pt to be encouraged to attend activity and clinical groups 3-5x per week to identify at least 2 contributing factors to increased agitation, irritability, and aggression. Psycho-education to be provided to patient/family regarding benefits of medications and treatment adherence. Pt to be encouraged to participate in group milieu to develop effective coping skills to reduce aggression and reduce psychiatric hospitalizations. Coordinate discharge resource needs by providing referral for psychiatric treatment follow up in the community. Discharge/Continuing Care - Education Needs Education Needs: Family Medication, Family Diagnosis/Disease Process, Family Coping Skills, Family Placement options, Family Community resources, Family Activities of Daily Living, Family Uses of Medical Equipment, Family Personal Hygiene/Grooming, Family Aftercare Safety Plan, Patient Coping Skills, Patient Uses of Medical Equipment, Patient Personal Hygiene/Grooming, Patient Aftercare Safety Plan - Discharge Discharge Criteria: Tolerates medication w/o severe side effects, Free of agitation, Normal sleep pattern, Ability to care for self, Reduction of target symptoms Discharge to:: Shelter - Additional Comments 11/12/17 11:33 Pt discussed in team meeting. Initially pt was agreeable to attend team meeting ; pt assisted by RN, Melinda Hernandez and once pt entered the room pt stated "I wish you the best of luck and thank you for being polite polite." Pt refused to sit down and requested to be brought back to her room. Pt exited room with the assistance of RN. Reason for hospitalization reviewed. Pt's social and medical issues reviewed. Pt's medications reviewed. Tx plan reviewed and discussed. SW to contact legal guardian. SW to continue to follow case. - Treatment Team Participation Patient/Family/SO Statement: Dementia w/ Behavioral Disturbances; Patient is psychiatrically stable for referral to prison facility. -Individual and group therapy -Psychoeducation -Continue Aricept 5 mg PO HS -Continue [id number] mg PO BID for seizure control and mood stabilization; case discussed with Neurologist; VPA 34.6 on 11/18/17, will recheck VPA in 5 days -Continue Trazodone 50 mg PO HS -Medicine consult; treated for UTI -Disposition planning- in the process of referring to prison facility Discussed with Family/SO: No Was Patient/Family/SO present at Treatment Team Meeting: Yes Treatment Plan Review Patient participation: No (Pt refused) Family/SO/Caregiver participation: No Additional Comments: Pt discussed in team meeting. Pt refused to attend meeting. Pt's progress and bx on the unit reviewed and discussed. Pt's memory is impaired. Pt continues to wander the unit and into other pt's rooms. Pt is verbally abusive towards staff when re-directed. Pt is easily agitated and irritable. Pt is intermittently compliant with her medications. Pt is pending placement. Reported[facility] director[facility] going to assess pt on the unit. [facility] will also refer pt to other facilities in [facility]. SW to continue to follow case. - Problem Agitated/aggressive behavior Date Initiated: 11/11/17 Time Initiated: 20:55 Progress toward outcomes: improved (Pt has periods of verbal abuse towards staff when re-directed. Pt has no exhibited any physical aggression or combative bx's.) Medication nonadherence Date Initiated: 11/11/17 Time Initiated: 20:58 Progress toward outcomes: unchanged (Pt intermittently compliant with medications.) - Discharge / Continuing Care Discharge to:: Shelter Behavioral Health Services: Other (Medication management) Health Needs: Follow up care/test, Doctor appointments, Special equipment, Nutritional, Medications/Rx, Recreational/Social
[2017-11-27] MEDS: Divalproex 125 mg Sprinkle Capsule PO SCH ×3 (08:58→18:02)
[2017-11-27] MEDS: Cholecalciferol 400 Intl Units Tab PO SCH (08:58)
[2017-11-27] MEDS: Pantoprazole 40 mg EC Tab PO SCH (08:58)
--- NOTE | 2017-11-27 14:01 | PCM.PYCHPN ---
Psychiatric Progress Note - Psychiatric Progress Note Patient seen today, length of contact: Patient evaluated, case discussed with team, chart reviewed Patient Chief Complaint: admitted for changes in behavior related to dementia. requires total care. has guardian. per staff appear to have reached baseline. pending placement ltc- requires total care. Problems Identified/Issues Discussed: alteration in cognition alteration in self care Medical Problems: per chart Diagnostic Results: per psychiatry per medicine per nursing per social work per recreational therapy DSM 5 Symptoms Update: alteration in cognition alteration in self care Medication Change: No Medical Record Reviewed: Yes Consults ordered or reviewed: pt seen by hospitalist Mental Status Examination - Cognitive Function Orientation: Person Memory: Impaired Attention: Poor Concentration: Poor Association: Loose Fund of Knowledge: Poor Decription of patient's judgement and insights: poor - Mood Mood: Neutral - Affect Affect: Broad - Speech Speech: Appropriate - Formal Thought Process Formal Thought Process: Loosening of associations - Suicidal Ideation Suicidal Ideation: No - Homicidal Ideation Homicidal Ideation: No Goal/Treatment Plan - Goal/Treatment Plan Need for Continued Stay: Severe functional impairment Progress Toward Problem(s) and Goals/Treatment Plan: inpt milieu clinical observation and vital signs per protocol and per clinical status adjust meds per status requires total care structure pt has guardian pending placement Estimated Date of D/C: 11/26/17 - Smoking Cessation Smoking Cessation Initiated: No Reason for not providing: pt defers
[2017-11-28] MEDS: Cholecalciferol 400 Intl Units Tab PO SCH (10:59)
[2017-11-28] MEDS: Divalproex 125 mg Sprinkle Capsule PO SCH ×2 (10:59→16:53)
[2017-11-28] MEDS: Pantoprazole 40 mg EC Tab PO SCH (11:00)
--- NOTE | 2017-11-28 16:05 | PCM.PYCHPN ---
Psychiatric Progress Note - Psychiatric Progress Note Patient seen today, length of contact: Patient evaluated, case discussed with team, chart reviewed Patient Chief Complaint: admitted for changes in behavior related to dementia. requires total care. has guardian. per staff appear to have reached baseline. pending placement ltc- requires total care. Problems Identified/Issues Discussed: pt is noted to be pacing less in unit at times, at times labile nice pleasant then yelling -pt required total care to related incontinence by nursing staff, per staff pt somewhat calmer, sleep improved, adherent medical treatment Medical Problems: per chart Diagnostic Results: per psychiatry per medicine per nursing per social work per recreational therapy Medication Change: No Medical Record Reviewed: Yes Consults ordered or reviewed: pt being followed by hospitalist Mental Status Examination - Cognitive Function Orientation: Person Memory: Impaired Attention: Poor Concentration: Poor Association: Loose Fund of Knowledge: Poor Decription of patient's judgement and insights: poor - Mood Mood: Neutral - Affect Affect: Broad - Speech Speech: Appropriate Additional comments: varies soft some yelling less as compaired to yesterday - Formal Thought Process Formal Thought Process: Loosening of associations - Suicidal Ideation Suicidal Ideation: No - Homicidal Ideation Homicidal Ideation: No Goal/Treatment Plan - Goal/Treatment Plan Need for Continued Stay: Severe functional impairment Progress Toward Problem(s) and Goals/Treatment Plan: inpt milieu clinical observation and vital signs per protocol and per clinical status adjust meds per status requires total care structure pt has guardian pending placement Estimated Date of D/C: 12/03/17 If changed, why: pending placement
--- NOTE | 2017-11-29 09:37 | PCM.PYCHPN ---
Psychiatric Progress Note - Psychiatric Progress Note Patient seen today, length of contact: Patient evaluated, case discussed with team, chart reviewed Patient Chief Complaint: "I'm fine." Problems Identified/Issues Discussed: Patient is at her baseline of functioning and is psychiatrically stable for referral to [facility] facility. A + O x 1. She has chronic poor insight/ judgment due to dementia. Diagnostic Results: VPA 34.6 on 11/18/17 Medication Change: No Medical Record Reviewed: Yes Consults ordered or reviewed: Medicine consult, Neurology consult Mental Status Examination - Cognitive Function Orientation: Person Memory: Impaired Attention: Poor Concentration: Poor Association: Loose Fund of Knowledge: Poor Decription of patient's judgement and insights: Chronic poor I/J due to dementia - Mood Mood: Neutral - Affect Affect: Broad - Speech Speech: Appropriate - Formal Thought Process Formal Thought Process: Loosening of associations Psychotic Thoughts and Behaviors: NO AH/VH/paranoia/delusions - Suicidal Ideation Suicidal Ideation: No - Homicidal Ideation Homicidal Ideation: No Goal/Treatment Plan - Goal/Treatment Plan Need for Continued Stay: Severe functional impairment Progress Toward Problem(s) and Goals/Treatment Plan: Dementia w/ Behavioral Disturbances; Patient is psychiatrically stable for referral to [facility] facility. -Individual and group therapy -Psychoeducation -Continue Aricept 5 mg PO HS -Continue Depakote 750 mg PO BID for seizure control and mood stabilization; case discussed with Neurologist; VPA 34.6 on 11/18/17, will recheck VPA; patient currently refusing bloodwork -Continue Trazodone 50 mg PO HS -Medicine consult; treated for UTI -Disposition planning- in the process of referring to [facility] facility Estimated Date of D/C: 12/03/17
[2017-11-29] MEDS: Divalproex 125 mg Sprinkle Capsule PO SCH ×2 (09:45→17:37)
[2017-11-29] MEDS: Pantoprazole 40 mg EC Tab PO SCH (09:46)
[2017-11-29] MEDS: Cholecalciferol 400 Intl Units Tab PO SCH (09:46)
--- NOTE | 2017-11-30 08:59 | PCM.PYCHPN ---
Psychiatric Progress Note - Psychiatric Progress Note Patient seen today, length of contact: Patient evaluated, case discussed with team, chart reviewed Patient Chief Complaint: "I'm fine." Problems Identified/Issues Discussed: No new events overnight. Patient is at her baseline of functioning and is psychiatrically stable for referral to nursing home facility. A + O x 1. She has chronic poor insight/judgment due to dementia. Diagnostic Results: VPA 34.6 on 11/18/17 Medication Change: No Medical Record Reviewed: Yes Consults ordered or reviewed: Medicine consult, Neurology consult Mental Status Examination - Cognitive Function Orientation: Person Memory: Impaired Attention: Poor Concentration: Poor Association: Loose Fund of Knowledge: Poor Decription of patient's judgement and insights: Chronic poor I/J due to dementia - Mood Mood: Neutral - Affect Affect: Broad - Speech Speech: Appropriate - Formal Thought Process Formal Thought Process: Loosening of associations Psychotic Thoughts and Behaviors: NO AH/VH/paranoia/delusions - Suicidal Ideation Suicidal Ideation: No - Homicidal Ideation Homicidal Ideation: No Goal/Treatment Plan - Goal/Treatment Plan Need for Continued Stay: Severe functional impairment Progress Toward Problem(s) and Goals/Treatment Plan: Dementia w/ Behavioral Disturbances; Patient is psychiatrically stable for referral to nursing home facility. -Individual and group therapy -Psychoeducation -Continue Aricept 5 mg PO HS -Continue Depakote 750 mg PO BID for seizure control and mood stabilization; case discussed with Neurologist; VPA 34.6 on 11/18/17, will recheck VPA; patient currently refusing bloodwork -Continue Trazodone 50 mg PO HS -Medicine consult; treated for UTI -Disposition planning- in the process of referring to nursing home facility Estimated Date of D/C: 12/03/17
[2017-11-30] MEDS: Divalproex 125 mg Sprinkle Capsule PO SCH ×2 (12:04→17:08)
[2017-11-30] MEDS: Cholecalciferol 400 Intl Units Tab PO SCH (12:07)
[2017-11-30] MEDS: Pantoprazole 40 mg EC Tab PO SCH (12:07)
[2017-12-01] MEDS: Divalproex 125 mg Sprinkle Capsule PO SCH ×2 (08:49→16:52)
[2017-12-01] MEDS: Pantoprazole 40 mg EC Tab PO SCH (08:50)
[2017-12-01] MEDS: Cholecalciferol 400 Intl Units Tab PO SCH (08:51)
[2017-12-02] MEDS: Pantoprazole 40 mg EC Tab PO SCH (11:05)
[2017-12-02] MEDS: Divalproex 125 mg Sprinkle Capsule PO SCH ×2 (11:07→16:51)
[2017-12-02] MEDS: Cholecalciferol 400 Intl Units Tab PO SCH (11:08)
--- NOTE | 2017-12-02 16:56 | PCM.PYCHPN ---
Psychiatric Progress Note - Psychiatric Progress Note Patient seen today, length of contact: Patient evaluated, case discussed with team, chart reviewed Patient Chief Complaint: admitted for changes in behavior related to dementia. has guardian. per staff appear to have reached baseline. pending placement ltc-requires total care. pt is being followed by hospitalist Problems Identified/Issues Discussed: pt is noted to be walking about in unit, at times entering nursing station easily redirectable notable more smiling at times, less labile taking rx with redirection per staff pt somewhat calmer, sleep improved, Medical Problems: per chart Diagnostic Results: per psychiatry per medicine per nursing per social work per recreational therapy DSM 5 Symptoms Update: less labile more redirectable needs total care Medication Change: No Medical Record Reviewed: Yes Consults ordered or reviewed: hospitalist following pt Mental Status Examination - Cognitive Function Orientation: Person Memory: Impaired Attention: Poor Concentration: Poor Association: Loose Fund of Knowledge: Poor Decription of patient's judgement and insights: poor - Mood Mood: Neutral - Affect Affect: Broad - Speech Speech: Appropriate - Formal Thought Process Formal Thought Process: Loosening of associations - Suicidal Ideation Suicidal Ideation: No - Homicidal Ideation Homicidal Ideation: No Goal/Treatment Plan - Goal/Treatment Plan Need for Continued Stay: Severe functional impairment Progress Toward Problem(s) and Goals/Treatment Plan: inpt milieu clinical observation and vital signs per protocol and per clinical status adjust meds per status requires total care structure pt has guardian pending placement ltc Estimated Date of D/C: 12/03/17 - Smoking Cessation Smoking Cessation Initiated: No Reason for not providing: defers
[2017-12-03] MEDS: Divalproex 125 mg Sprinkle Capsule PO SCH ×2 (08:27→16:13)
[2017-12-03] MEDS: Pantoprazole 40 mg EC Tab PO SCH (08:28)
[2017-12-03] MEDS: Cholecalciferol 400 Intl Units Tab PO SCH (08:37)
--- NOTE | 2017-12-03 18:30 | PCM.PYCHPN ---
Psychiatric Progress Note - Psychiatric Progress Note Patient seen today, length of contact: Patient evaluated, case discussed with team, chart reviewed Patient Chief Complaint: admitted for changes in behavior related to dementia. has guardian. per staff appear to have reached baseline. pending placement ltc-requires total care- redirection by nursing staff. pt is being followed by hospitalist Problems Identified/Issues Discussed: pt is noted to be walking about in unit, at times entering nursing station easily redirectable notable more smiling at times, less labile taking rx with redirection per staff pt somewhat calmer, sleep improved, Medical Problems: per chart Diagnostic Results: per psychiatry per medicine per nursing per social work per recreational therapy DSM 5 Symptoms Update: baseline cognitive function requires total care Medication Change: No Medical Record Reviewed: Yes Consults ordered or reviewed: pt seen by hospitalist Mental Status Examination - Cognitive Function Orientation: Person Memory: Impaired Attention: Poor Concentration: Poor Association: Loose Fund of Knowledge: Poor Decription of patient's judgement and insights: poor - Mood Mood: Neutral - Affect Affect: Broad - Speech Speech: Appropriate - Formal Thought Process Formal Thought Process: Loosening of associations - Suicidal Ideation Suicidal Ideation: No - Homicidal Ideation Homicidal Ideation: No Goal/Treatment Plan - Goal/Treatment Plan Need for Continued Stay: Severe functional impairment Progress Toward Problem(s) and Goals/Treatment Plan: inpt milieu clinical observation and vital signs per protocol and per clinical status adjust meds per status requires total care structure pt has guardian pending placement ltc Estimated Date of D/C: 12/03/17 - Smoking Cessation Smoking Cessation Initiated: No Reason for not providing: defers
[2017-12-04] MEDS: Cholecalciferol 400 Intl Units Tab PO SCH (08:18)
[2017-12-04] MEDS: Divalproex 125 mg Sprinkle Capsule PO SCH ×2 (08:18→16:38)
[2017-12-04] MEDS: Pantoprazole 40 mg EC Tab PO SCH (08:20)
--- NOTE | 2017-12-04 12:56 | PCM.PYCHPN ---
Psychiatric Progress Note - Psychiatric Progress Note Patient seen today, length of contact: Patient evaluated, case discussed with team, chart reviewed Patient Chief Complaint: pt has remained confused intermittently and still need redirection and need further stabilization. Medication Change: No Medical Record Reviewed: Yes Mental Status Examination - Cognitive Function Orientation: Person Memory: Impaired Attention: Poor Concentration: Poor Association: Loose Fund of Knowledge: Poor - Mood Mood: Neutral - Affect Affect: Broad - Speech Speech: Appropriate - Formal Thought Process Formal Thought Process: Loosening of associations - Suicidal Ideation Suicidal Ideation: No - Homicidal Ideation Homicidal Ideation: No Goal/Treatment Plan - Goal/Treatment Plan Need for Continued Stay: Severe functional impairment Progress Toward Problem(s) and Goals/Treatment Plan: continue to stabilize with therapy and meds adjustment. psychoeducation. disposition planning as per dr gonzalez for placement in skilled [place] Estimated Date of D/C: 12/03/17
[2017-12-05] MEDS: Cholecalciferol 400 Intl Units Tab PO SCH (10:24)
[2017-12-05] MEDS: Divalproex 125 mg Sprinkle Capsule PO SCH ×2 (10:24→17:14)
[2017-12-05] MEDS: Pantoprazole 40 mg EC Tab PO SCH (10:24)
--- NOTE | 2017-12-05 11:42 | PCM.PYCHPN ---
Psychiatric Progress Note - Psychiatric Progress Note Patient seen today, length of contact: Patient evaluated, case discussed with team, chart reviewed Patient Chief Complaint: pt has remained confused intermittently and still need redirection and need further stabilization. pt is still irritible and labile but can be redirected. Medication Change: No Medical Record Reviewed: Yes Mental Status Examination - Cognitive Function Orientation: Person Memory: Impaired Attention: Poor Concentration: Poor Association: Loose Fund of Knowledge: Poor - Mood Mood: Neutral - Affect Affect: Broad - Speech Speech: Appropriate - Formal Thought Process Formal Thought Process: Loosening of associations - Suicidal Ideation Suicidal Ideation: No - Homicidal Ideation Homicidal Ideation: No Goal/Treatment Plan - Goal/Treatment Plan Need for Continued Stay: Severe functional impairment Progress Toward Problem(s) and Goals/Treatment Plan: will continue to stabilize with meds and therapy . Disposition plans as per dr gonzalez re: placement in SNF. Estimated Date of D/C: 12/03/17
--- NOTE | 2017-12-06 08:18 | PCM.PYCHPN ---
Psychiatric Progress Note - Psychiatric Progress Note Patient seen today, length of contact: Patient evaluated, case discussed with team, chart reviewed Patient Chief Complaint: "I'm fine." Problems Identified/Issues Discussed: Patient is at her baseline of functioning and is psychiatrically stable for referral to senior living facility. A + O x 1. She has chronic poor insight/ judgment due to dementia. Diagnostic Results: VPA 34.6 on 11/18/17; VPA 81.3 on 12/01/17 Medication Change: No Medical Record Reviewed: Yes Consults ordered or reviewed: Medicine consult, Neurology consult Mental Status Examination - Cognitive Function Orientation: Person Memory: Impaired Attention: Poor Concentration: Poor Association: Loose Fund of Knowledge: Poor Decription of patient's judgement and insights: Chronic poor I/J due to dementia - Mood Mood: Neutral - Affect Affect: Broad - Speech Speech: Appropriate - Formal Thought Process Formal Thought Process: Loosening of associations Psychotic Thoughts and Behaviors: No AH/VH/paranoia/delusions - Suicidal Ideation Suicidal Ideation: No - Homicidal Ideation Homicidal Ideation: No Goal/Treatment Plan - Goal/Treatment Plan Need for Continued Stay: Severe functional impairment Progress Toward Problem(s) and Goals/Treatment Plan: Dementia w/ Behavioral Disturbances; Patient is psychiatrically stable for referral to senior living facility. -Individual and group therapy -Psychoeducation -Continue Aricept 5 mg PO HS -Continue Depakote 750 mg PO BID for seizures and mood stabilization; VPA 81.3 on 12/01/17 -Continue Trazodone 50 mg PO HS -Medicine consult; treated for UTI -Disposition planning- in the process of referring to senior living facility Estimated Date of D/C: 12/07/17
[2017-12-06] MEDS: Divalproex 125 mg Sprinkle Capsule PO SCH ×2 (08:27→16:59)
[2017-12-06] MEDS: Pantoprazole 40 mg EC Tab PO SCH (08:28)
[2017-12-06] MEDS: Cholecalciferol 400 Intl Units Tab PO SCH (08:28)
--- NOTE | 2017-12-07 08:24 | PCM.PYCHPN ---
Psychiatric Progress Note - Psychiatric Progress Note Patient seen today, length of contact: Patient evaluated, case discussed with team, chart reviewed Patient Chief Complaint: "I'm fine." Problems Identified/Issues Discussed: No significant events overnight. Patient is at her baseline of functioning and is psychiatrically stable for referral to residential facility. A + O x 1. She has chronic poor insight/judgment due to dementia. Diagnostic Results: VPA 34.6 on 11/18/17; VPA 81.3 on 12/01/17 Medication Change: No Medical Record Reviewed: Yes Consults ordered or reviewed: Medicine consult, Neurology consult Mental Status Examination - Cognitive Function Orientation: Person Memory: Impaired Attention: Poor Concentration: Poor Association: Loose Fund of Knowledge: Poor Decription of patient's judgement and insights: Chronic poor I/J due to dementia - Mood Mood: Neutral - Affect Affect: Broad - Speech Speech: Appropriate - Formal Thought Process Formal Thought Process: Loosening of associations Psychotic Thoughts and Behaviors: No AH/VH/paranoia/delusions - Suicidal Ideation Suicidal Ideation: No - Homicidal Ideation Homicidal Ideation: No Goal/Treatment Plan - Goal/Treatment Plan Need for Continued Stay: Severe functional impairment Progress Toward Problem(s) and Goals/Treatment Plan: Dementia w/ Behavioral Disturbances; Patient is psychiatrically stable for referral to residential facility. -Individual and group therapy -Psychoeducation -Continue Aricept 5 mg PO HS -Continue Depakote 750 mg PO BID for seizures and mood stabilization; VPA 81.3 on 12/01/17 -Continue Trazodone 50 mg PO HS -Medicine consult; treated for UTI -Disposition planning- in the process of referring to residential facilities Estimated Date of D/C: 12/09/17
[2017-12-07] MEDS: Divalproex 125 mg Sprinkle Capsule PO SCH ×2 (09:30→16:59)
[2017-12-07] MEDS: Cholecalciferol 400 Intl Units Tab PO SCH (09:31)
[2017-12-07] MEDS: Pantoprazole 40 mg EC Tab PO SCH (09:31)
--- NOTE | 2017-12-08 07:06 | PCM.PYCHPN ---
Psychiatric Progress Note - Psychiatric Progress Note Patient seen today, length of contact: Patient evaluated, case discussed with team, chart reviewed Patient Chief Complaint: "I'm fine." Problems Identified/Issues Discussed: Patient had a fall last night; medicine consult was called to evaluate patient. Patient continues to be at her baseline of functioning and is psychiatrically stable for referral to long term facility. A + O x 1. She has chronic poor insight/judgment due to dementia. Diagnostic Results: VPA 34.6 on 11/18/17; VPA 81.3 on 12/01/17 Medication Change: No Medical Record Reviewed: Yes Consults ordered or reviewed: Medicine consult, Neurology consult Mental Status Examination - Cognitive Function Orientation: Person Memory: Impaired Attention: Poor Concentration: Poor Association: Loose Fund of Knowledge: Poor Decription of patient's judgement and insights: Chronic poor I/J due to dementia - Mood Mood: Neutral - Affect Affect: Broad - Speech Speech: Appropriate - Formal Thought Process Formal Thought Process: Loosening of associations Psychotic Thoughts and Behaviors: No AH/VH/paranoia/delusions - Suicidal Ideation Suicidal Ideation: No - Homicidal Ideation Homicidal Ideation: No Goal/Treatment Plan - Goal/Treatment Plan Need for Continued Stay: Severe functional impairment Progress Toward Problem(s) and Goals/Treatment Plan: Dementia w/ Behavioral Disturbances; Patient is psychiatrically stable for referral to long term facility. -Individual and group therapy -Psychoeducation -Continue Aricept 5 mg PO HS -Continue Depakote 750 mg PO BID for seizures and mood stabilization; VPA 81.3 on 12/01/17 -Continue Trazodone 50 mg PO HS -Medicine consult; completed treatment for UTI -Disposition planning- in the process of referring to long term facilities Estimated Date of D/C: 12/10/17
[2017-12-08] MEDS: Divalproex 125 mg Sprinkle Capsule PO SCH ×2 (08:23→16:37)
[2017-12-08] MEDS: Cholecalciferol 400 Intl Units Tab PO SCH (08:24)
[2017-12-08] MEDS: Pantoprazole 40 mg EC Tab PO SCH (08:24)
--- NOTE | 2017-12-08 20:35 | PCM.FALL ---
Post Fall Progress Note - Post Fall Fall Date: 12/07/17 Fall Time: 23:30 - Post Fall Exam Vital Sign: Temp Pulse Resp BP Pulse Ox 98 F 81 18 90/56 L 100 12/08/17 16:00 12/08/17 16:00 12/08/17 16:00 12/08/17 16:00 11/11/17 20:27 Skull Exam: Negative for: Scalp wound, Scalp hematoma, Scalp depression, Ridge in skull Eye Exam: Positive for: Pupils equal, Pupils reactive Ear Exam: Negative for: Discharge, Bleeding Nose Exam: Negative for: Discharge, Bleeding Skin Exam: Positive for: Bruising Mouth Exam: Negative for: Tongue bitten, Teeth dislodge Neck Exam: Negative for: Tenderness, Tingling, Weakness Spinal Exam: Negative for: Tenderness, Tingling, Weakness Chest Exam: Negative for: Difficulty breathing, Tenderness in collar bones, Tenderness in ribs Abdomen Exam: Negative for: Tenderness Arm Exam: Negative for: Deformity, Alteration in range of movement Leg Exam: Negative for: Deformity, Alteration in range of movement Other pertinent findings: Patient fell unto the left knee. She was able to get up on her own and transfer back to bed; Exam showed mild abrasion 2.5cm the longest diameter, at anterior left knee. Mild tenderness on palpation. Patient also has a healing hematoma on the right knee of probable previous fall which is also tender to palpation. The patient has been ambulating fully . I&P Mild trauma to the left knee - Warm compressor - Bacitracin ointment - Tylenol Fran Crandall MD
[2017-12-09] MEDS: Bacitracin OINT 15GM TOP SCH ×3 (00:35→16:26)
--- NOTE | 2017-12-09 08:11 | PCM.PYCHPN ---
Psychiatric Progress Note - Psychiatric Progress Note Patient seen today, length of contact: Patient evaluated, case discussed with team, chart reviewed Patient Chief Complaint: "I'm fine." Problems Identified/Issues Discussed: No new events overnight. Patient continues to be at her baseline of functioning and is psychiatrically stable for referral to longterm facility. A + O x 1. She has chronic poor insight/judgment due to dementia. Diagnostic Results: VPA 34.6 on 11/18/17; VPA 81.3 on 12/01/17 Medication Change: No Medical Record Reviewed: Yes Mental Status Examination - Cognitive Function Orientation: Person Memory: Impaired Attention: Poor Concentration: Poor Association: Loose Fund of Knowledge: Poor Decription of patient's judgement and insights: Chronic poor I/J due to dementia - Mood Mood: Neutral - Affect Affect: Broad - Speech Speech: Appropriate - Formal Thought Process Formal Thought Process: Loosening of associations Psychotic Thoughts and Behaviors: No AH/VH/paranoia/delusions - Suicidal Ideation Suicidal Ideation: No - Homicidal Ideation Homicidal Ideation: No Goal/Treatment Plan - Goal/Treatment Plan Need for Continued Stay: Severe functional impairment Progress Toward Problem(s) and Goals/Treatment Plan: Dementia w/ Behavioral Disturbances; Patient is psychiatrically stable for referral to longterm facility. -Individual and group therapy -Psychoeducation -Continue Aricept 5 mg PO HS -Continue Depakote 750 mg PO BID for seizures and mood stabilization; VPA 81.3 on 12/01/17 -Continue Trazodone 50 mg PO HS -Medicine consult; completed treatment for UTI -Disposition planning- in the process of referring to longterm facilities Estimated Date of D/C: 12/13/17
[2017-12-09] MEDS: Divalproex 125 mg Sprinkle Capsule PO SCH ×2 (09:15→16:26)
[2017-12-09] MEDS: Cholecalciferol 400 Intl Units Tab PO SCH (09:16)
[2017-12-09] MEDS: Pantoprazole 40 mg EC Tab PO SCH (09:16)
--- NOTE | 2017-12-10 08:21 | PCM.PYCHPN ---
Psychiatric Progress Note - Psychiatric Progress Note Patient seen today, length of contact: Patient evaluated, case discussed with team, chart reviewed Patient Chief Complaint: "I'm fine." Problems Identified/Issues Discussed: No new events. Patient continues to be at her baseline of functioning and is psychiatrically stable for referral to jail facility. A + O x 1. She has chronic poor insight/judgment due to dementia. Diagnostic Results: VPA 34.6 on 11/18/17; VPA 81.3 on 12/01/17 Medication Change: No Medical Record Reviewed: Yes Consults ordered or reviewed: Medicine consult, Neurology consult Mental Status Examination - Cognitive Function Orientation: Person Memory: Impaired Attention: Poor Concentration: Poor Association: Loose Fund of Knowledge: Poor Decription of patient's judgement and insights: Chronic poor I/J due to dementia - Mood Mood: Neutral - Affect Affect: Broad - Speech Speech: Appropriate - Formal Thought Process Formal Thought Process: Loosening of associations Psychotic Thoughts and Behaviors: No AH/VH/paranoia/delusions - Suicidal Ideation Suicidal Ideation: No - Homicidal Ideation Homicidal Ideation: No Goal/Treatment Plan - Goal/Treatment Plan Need for Continued Stay: Severe functional impairment Progress Toward Problem(s) and Goals/Treatment Plan: Dementia w/ Behavioral Disturbances; Patient is psychiatrically stable for referral to jail facility. -Individual and group therapy -Psychoeducation -Continue Aricept 5 mg PO HS -Continue Depakote 750 mg PO BID for seizures and mood stabilization; VPA 81.3 on 12/01/17 -Continue Trazodone 50 mg PO HS -Medicine consult; completed treatment for UTI -Disposition planning- in the process of referring to jail facilities Estimated Date of D/C: 12/17/17
[2017-12-10] MEDS: Divalproex 125 mg Sprinkle Capsule PO SCH ×2 (08:29→16:17)
[2017-12-10] MEDS: Cholecalciferol 400 Intl Units Tab PO SCH (08:29)
[2017-12-10] MEDS: Pantoprazole 40 mg EC Tab PO SCH (08:29)
[2017-12-10] MEDS: Bacitracin OINT 15GM TOP SCH ×2 (08:32→16:21)
[2017-12-11] MEDS: Divalproex 125 mg Sprinkle Capsule PO SCH ×2 (08:09→16:55)
[2017-12-11] MEDS: Bacitracin OINT 15GM TOP SCH ×2 (08:10→16:56)
[2017-12-11] MEDS: Pantoprazole 40 mg EC Tab PO SCH (08:10)
[2017-12-11] MEDS: Cholecalciferol 400 Intl Units Tab PO SCH (08:10)
--- NOTE | 2017-12-11 08:42 | PCM.BM ---
Treatment Plan Problems - Problems identified on initial assessmt Agitated/aggressive behavior Date Initiated: 11/11/17 Time Initiated: 20:55 Assessment reference: NA Status: Active Medication nonadherence Date Initiated: 11/11/17 Time Initiated: 20:58 Assessment reference: NA Status: Active Treatment assets and liabiliti Patient Liabilities: poor support system, imparied memory - Milieu Protocol Maintain good personal hygiene: daily Encourage regular showers, daily Remind patient to perform daily oral care, daily Assist patient to perform ADL's Conduct patient checks and document Observation sheet: Q15 minutes Maintain personal safety: every shift Educate patient to report safety concerns to staff, every shift Monitor environment for contraband/sharps Medication safety: Monitor for expected outcome, potential side effects: every shift, Assess barriers to learning: every shift, Assess readiness for medication education: every shift Milieu Narrative: Dementia w/ Behavioral Disturbances; Patient is psychiatrically stable for referral to long-term facility. -Individual and group therapy -Psychoeducation -Continue Aricept 5 mg PO HS -Continue Depakote 750 mg PO BID for seizures and mood stabilization; VPA 81.3 on 12/01/17 -Continue Trazodone 50 mg PO HS -Medicine consult; completed treatment for UTI -Disposition planning- in the process of referring to long-term facilities Family Contact Family involvement: Family/SO is involved Family contact: Patient agrees to contact, Family has been contacted by patient , Telephone contact initiated by staff Family contact name: Aguilar Fernandez - legal guardian - Outside Agency [facility] involvment: Information-sharing Agency contact number: - Goals for Treatment Patient goals for treatment: Pt to be encouraged to attend activity and clinical groups 3-5x per week to identify at least 2 contributing factors to increased agitation, irritability, and aggression. Psycho-education to be provided to patient/family regarding benefits of medications and treatment adherence. Pt to be encouraged to participate in group milieu to develop effective coping skills to reduce aggression and reduce psychiatric hospitalizations. Coordinate discharge resource needs by providing referral for psychiatric treatment follow up in the community. Discharge/Continuing Care - Education Needs Education Needs: Family Medication, Family Diagnosis/Disease Process, Family Coping Skills, Family Placement options, Family Community resources, Family Activities of Daily Living, Family Uses of Medical Equipment, Family Personal Hygiene/Grooming, Family Aftercare Safety Plan, Patient Coping Skills, Patient Uses of Medical Equipment, Patient Personal Hygiene/Grooming, Patient Aftercare Safety Plan - Discharge Discharge Criteria: Tolerates medication w/o severe side effects, Free of agitation, Normal sleep pattern, Ability to care for self, Reduction of target symptoms Discharge to:: [facility] - Additional Comments 11/12/17 11:33 Pt discussed in team meeting. Initially pt was agreeable to attend team meeting ; pt assisted by RN, Melinda Hernandez and once pt entered the room pt stated "I wish you the best of luck and thank you for being polite polite." Pt refused to sit down and requested to be brought back to her room. Pt exited room with the assistance of RN. Reason for hospitalization reviewed. Pt's social and medical issues reviewed. Pt's medications reviewed. Tx plan reviewed and discussed. SW to contact legal guardian. SW to continue to follow case. - Treatment Team Participation Patient/Family/SO Statement: Dementia w/ Behavioral Disturbances; Patient is psychiatrically stable for referral to long-term facility. -Individual and group therapy -Psychoeducation -Continue Aricept 5 mg PO HS -Continue Depakote 750 mg PO BID for seizures and mood stabilization; VPA 81.3 on 12/01/17 -Continue Trazodone 50 mg PO HS -Medicine consult; completed treatment for UTI -Disposition planning- in the process of referring to long-term facilities Discussed with Family/SO: No Was Patient/Family/SO present at Treatment Team Meeting: Yes Treatment Plan Review - Problem Agitated/aggressive behavior Date Initiated: 11/11/17 Time Initiated: 20:55 Progress toward outcomes: improved (Pt has periods of verbal abuse towards staff when re-directed. Pt has no exhibited any physical aggression or combative bx's.) Medication nonadherence Date Initiated: 11/11/17 Time Initiated: 20:58 Progress toward outcomes: unchanged (Pt intermittently compliant with medications.) - Discharge / Continuing Care [facility]charge to:: [facility]: Residential treatment Health Needs: Follow up care/test, Medications/Rx (Pt still remains irritable and oppositional at times with labile mood. Pt's thoughts and speech are severely impaired by advanced dementia. Pt awaiting placement with an appropriate unit that can handle her behavioral disturbances. Pt's appointed attorney lawyer refused to release financials to [employer]. Pt unable to sign for team as she is only oriented to person. )
--- NOTE | 2017-12-11 09:04 | PCM.PYCHPN ---
Psychiatric Progress Note - Psychiatric Progress Note Patient seen today, length of contact: Patient evaluated, case discussed with team, chart reviewed Patient Chief Complaint: "I'm fine." Problems Identified/Issues Discussed: No new events overnight. Patient continues to be at her baseline of functioning and is psychiatrically stable for referral to detention facility. A + O x 1. She has chronic poor insight/judgment due to dementia. Diagnostic Results: VPA 34.6 on 11/18/17; VPA 81.3 on 12/01/17 Medication Change: No Medical Record Reviewed: Yes Consults ordered or reviewed: Medicine consult, Neurology consult Mental Status Examination - Cognitive Function Orientation: Person Memory: Impaired Attention: Poor Concentration: Poor Association: Loose Fund of Knowledge: Poor Decription of patient's judgement and insights: Chronic poor I/J due to dementia - Mood Mood: Neutral - Affect Affect: Broad - Speech Speech: Appropriate - Formal Thought Process Formal Thought Process: Loosening of associations Psychotic Thoughts and Behaviors: No AH/VH/paranoia/delusions - Suicidal Ideation Suicidal Ideation: No - Homicidal Ideation Homicidal Ideation: No Goal/Treatment Plan - Goal/Treatment Plan Need for Continued Stay: Severe functional impairment Progress Toward Problem(s) and Goals/Treatment Plan: Dementia w/ Behavioral Disturbances; Patient is psychiatrically stable for referral to detention facility. -Individual and group therapy -Psychoeducation -Continue Aricept 5 mg PO HS -Continue Depakote 750 mg PO BID for seizures and mood stabilization; VPA 81.3 on 12/01/17 -Continue Trazodone 50 mg PO HS -Medicine consult; completed treatment for UTI -Disposition planning- in the process of referring to detention facilities Estimated Date of D/C: 12/17/17
[2017-12-12] MEDS: Divalproex 125 mg Sprinkle Capsule PO SCH ×2 (08:54→17:00)
[2017-12-12] MEDS: Bacitracin OINT 15GM TOP SCH ×2 (08:55→16:59)
[2017-12-12] MEDS: Pantoprazole 40 mg EC Tab PO SCH (08:56)
[2017-12-12] MEDS: Cholecalciferol 400 Intl Units Tab PO SCH (08:57)
--- NOTE | 2017-12-13 08:20 | PCM.PYCHPN ---
Psychiatric Progress Note - Psychiatric Progress Note Patient seen today, length of contact: Patient evaluated, case discussed with team, chart reviewed Patient Chief Complaint: "I'm fine." Problems Identified/Issues Discussed: No new events over the weekend. Patient continues to be at her baseline of functioning and is psychiatrically stable for referral to shelter facility. A + O x 1. She has chronic poor insight/judgment due to dementia. Diagnostic Results: VPA 34.6 on 11/18/17; VPA 81.3 on 12/01/17 Medication Change: No Medical Record Reviewed: Yes Consults ordered or reviewed: Medicine consult, Neurology consult Mental Status Examination - Cognitive Function Orientation: Person Memory: Impaired Attention: Poor Concentration: Poor Association: Loose Fund of Knowledge: Poor Decription of patient's judgement and insights: Chronic poor I/J due to dementia - Mood Mood: Neutral - Affect Affect: Broad - Speech Speech: Appropriate - Formal Thought Process Formal Thought Process: Loosening of associations Psychotic Thoughts and Behaviors: No AH/VH/paranoia/delusions - Suicidal Ideation Suicidal Ideation: No - Homicidal Ideation Homicidal Ideation: No Goal/Treatment Plan - Goal/Treatment Plan Need for Continued Stay: Severe functional impairment Progress Toward Problem(s) and Goals/Treatment Plan: Dementia w/ Behavioral Disturbances; Patient is psychiatrically stable for referral to shelter facility. -Individual and group therapy -Psychoeducation -Continue Aricept 5 mg PO HS -Continue Depakote 750 mg PO BID for seizures and mood stabilization; VPA 81.3 on 12/01/17 -Continue Trazodone 50 mg PO HS -Medicine consult; completed treatment for UTI -Disposition planning- in the process of referring to shelter facilities Estimated Date of D/C: 12/17/17
[2017-12-13] MEDS: Bacitracin OINT 15GM TOP SCH ×2 (08:41→17:38)
[2017-12-13] MEDS: Divalproex 125 mg Sprinkle Capsule PO SCH ×2 (08:41→17:38)
[2017-12-13] MEDS: Pantoprazole 40 mg EC Tab PO SCH (08:42)
[2017-12-13] MEDS: Cholecalciferol 400 Intl Units Tab PO SCH (08:42)
--- NOTE | 2017-12-14 08:07 | PCM.PYCHPN ---
Psychiatric Progress Note - Psychiatric Progress Note Patient seen today, length of contact: Patient evaluated, case discussed with team, chart reviewed Patient Chief Complaint: "I'm fine." Problems Identified/Issues Discussed: No new events. Patient continues to be at her baseline of functioning and is psychiatrically stable for referral to half-way facility. A + O x 1. She has chronic poor insight/judgment due to dementia. Diagnostic Results: VPA 34.6 on 11/18/17; VPA 81.3 on 12/01/17 Medication Change: No Medical Record Reviewed: Yes Consults ordered or reviewed: Medicine consult, Neurology consult Mental Status Examination - Cognitive Function Orientation: Person Memory: Impaired Attention: Poor Concentration: Poor Association: Loose Fund of Knowledge: Poor Decription of patient's judgement and insights: Chronic poor I/J due to dementia - Mood Mood: Neutral - Affect Affect: Broad - Speech Speech: Appropriate - Formal Thought Process Formal Thought Process: Loosening of associations Psychotic Thoughts and Behaviors: No AH/VH/paranoia/delusions - Suicidal Ideation Suicidal Ideation: No - Homicidal Ideation Homicidal Ideation: No Goal/Treatment Plan - Goal/Treatment Plan Need for Continued Stay: Severe functional impairment Progress Toward Problem(s) and Goals/Treatment Plan: Dementia w/ Behavioral Disturbances; Patient is psychiatrically stable for referral to half-way facility. -Individual and group therapy -Psychoeducation -Continue Aricept 5 mg PO HS -Continue Depakote 750 mg PO BID for seizures and mood stabilization; VPA 81.3 on 12/01/17 -Continue Trazodone 50 mg PO HS -Medicine consult; completed treatment for UTI -Disposition planning- in the process of referring to half-way facilities Estimated Date of D/C: 12/17/17
[2017-12-14] MEDS: Bacitracin OINT 15GM TOP SCH ×2 (08:54→16:42)
[2017-12-14] MEDS: Divalproex 125 mg Sprinkle Capsule PO SCH ×2 (08:54→16:42)
[2017-12-14] MEDS: Pantoprazole 40 mg EC Tab PO SCH (08:55)
[2017-12-14] MEDS: Cholecalciferol 400 Intl Units Tab PO SCH (08:55)
--- NOTE | 2017-12-15 07:31 | PCM.PYCHPN ---
Psychiatric Progress Note - Psychiatric Progress Note Patient seen today, length of contact: Patient evaluated, case discussed with team, chart reviewed Patient Chief Complaint: "I'm fine." Problems Identified/Issues Discussed: No new events overnight. Patient continues to be at her baseline of functioning and is psychiatrically stable for referral to assisted facility. A + O x 1. She has chronic poor insight/judgment due to dementia. Diagnostic Results: VPA 34.6 on 11/18/17; VPA 81.3 on 12/01/17 Medication Change: No Medical Record Reviewed: Yes Mental Status Examination - Cognitive Function Orientation: Person Memory: Impaired Attention: Poor Concentration: Poor Association: Loose Fund of Knowledge: Poor Decription of patient's judgement and insights: Chronic poor I/J due to dementia - Mood Mood: Neutral - Affect Affect: Broad - Speech Speech: Appropriate - Formal Thought Process Formal Thought Process: Loosening of associations Psychotic Thoughts and Behaviors: No AH/VH/paranoia/delusions - Suicidal Ideation Suicidal Ideation: No - Homicidal Ideation Homicidal Ideation: No Goal/Treatment Plan - Goal/Treatment Plan Need for Continued Stay: Severe functional impairment Progress Toward Problem(s) and Goals/Treatment Plan: Dementia w/ Behavioral Disturbances; Patient is psychiatrically stable for referral to assisted facility. -Individual and group therapy -Psychoeducation -Continue Aricept 5 mg PO HS -Continue Depakote 750 mg PO BID for seizures and mood stabilization; VPA 81.3 on 12/01/17 -Continue Trazodone 50 mg PO HS -Medicine consult; completed treatment for UTI -Disposition planning- in the process of referring to assisted facilities Estimated Date of D/C: 12/17/17
[2017-12-15] MEDS: Bacitracin OINT 15GM TOP SCH ×2 (09:27→17:34)
[2017-12-15] MEDS: Divalproex 125 mg Sprinkle Capsule PO SCH ×2 (09:28→17:35)
[2017-12-15] MEDS: Pantoprazole 40 mg EC Tab PO SCH (09:28)
[2017-12-15] MEDS: Cholecalciferol 400 Intl Units Tab PO SCH (09:29)
--- NOTE | 2017-12-16 08:44 | PCM.PYCHPN ---
Psychiatric Progress Note - Psychiatric Progress Note Patient seen today, length of contact: Patient evaluated, case discussed with team, chart reviewed Patient Chief Complaint: "I'm fine." Problems Identified/Issues Discussed: No new events. Patient continues to be at her baseline of functioning and is psychiatrically stable for referral to [facility] facility. A + O x 1. She has chronic poor insight/judgment due to dementia. Diagnostic Results: VPA 34.6 on 11/18/17; VPA 81.3 on 12/01/17 Medication Change: No Medical Record Reviewed: Yes Consults ordered or reviewed: Medicine consult, Neurology consult Mental Status Examination - Cognitive Function Orientation: Person Memory: Impaired Attention: Poor Concentration: Poor Association: Loose Fund of Knowledge: Poor Decription of patient's judgement and insights: Chronic poor I/J due to dementia - Mood Mood: Neutral - Affect Affect: Broad - Speech Speech: Appropriate - Formal Thought Process Formal Thought Process: Loosening of associations Psychotic Thoughts and Behaviors: No AH/VH/paranoia/delusions - Suicidal Ideation Suicidal Ideation: No - Homicidal Ideation Homicidal Ideation: No Goal/Treatment Plan - Goal/Treatment Plan Need for Continued Stay: Severe functional impairment Progress Toward Problem(s) and Goals/Treatment Plan: Dementia w/ Behavioral Disturbances; Patient is psychiatrically stable for referral to [facility] facility. -Individual and group therapy -Psychoeducation -Continue Aricept 5 mg PO HS -Continue Depakote 750 mg PO BID for seizures and mood stabilization; VPA 81.3 on 12/01/17 -Continue Trazodone 50 mg PO HS -Medicine consult; completed treatment for UTI -Disposition planning- in the process of referring to [facility] facilities (see SW notes) Estimated Date of D/C: 12/24/17
[2017-12-16] MEDS: Bacitracin OINT 15GM TOP SCH ×2 (08:58→16:43)
[2017-12-16] MEDS: Pantoprazole 40 mg EC Tab PO SCH (08:59)
[2017-12-16] MEDS: Cholecalciferol 400 Intl Units Tab PO SCH (08:59)
[2017-12-16] MEDS: Divalproex 125 mg Sprinkle Capsule PO SCH ×2 (09:00→16:43)
--- NOTE | 2017-12-17 08:42 | PCM.PYCHPN ---
Psychiatric Progress Note - Psychiatric Progress Note Patient seen today, length of contact: Patient evaluated, case discussed with team, chart reviewed Patient Chief Complaint: "I'm fine." Problems Identified/Issues Discussed: Patient continues to be at her baseline of functioning and is psychiatrically stable for referral to long-term facility. A + O x 1. She has chronic poor insight/judgment due to dementia. Diagnostic Results: VPA 34.6 on 11/18/17; VPA 81.3 on 12/01/17 Medication Change: No Medical Record Reviewed: Yes Consults ordered or reviewed: Medicine consult, Neurology consult Mental Status Examination - Cognitive Function Orientation: Person Memory: Impaired Attention: Poor Concentration: Poor Association: Loose Fund of Knowledge: Poor Decription of patient's judgement and insights: Chronic poor I/J due to dementia - Mood Mood: Neutral - Affect Affect: Broad - Speech Speech: Appropriate - Formal Thought Process Formal Thought Process: Loosening of associations Psychotic Thoughts and Behaviors: No AH/VH/paranoia/delusions - Suicidal Ideation Suicidal Ideation: No - Homicidal Ideation Homicidal Ideation: No Goal/Treatment Plan - Goal/Treatment Plan Need for Continued Stay: Severe functional impairment Progress Toward Problem(s) and Goals/Treatment Plan: Dementia w/ Behavioral Disturbances; Patient is psychiatrically stable for referral to long-term facility. -Individual and group therapy -Psychoeducation -Continue Aricept 5 mg PO HS -Continue Depakote 750 mg PO BID for seizures and mood stabilization; VPA 81.3 on 12/01/17 -Continue Trazodone 50 mg PO HS -Medicine consult; completed treatment for UTI -Disposition planning- in the process of referring to long-term facilities (see SW notes) Estimated Date of D/C: 12/24/17
[2017-12-17] MEDS: Pantoprazole 40 mg EC Tab PO SCH (10:59)
[2017-12-17] MEDS: Cholecalciferol 400 Intl Units Tab PO SCH (11:00)
[2017-12-17] MEDS: Divalproex 125 mg Sprinkle Capsule PO SCH ×2 (11:00→17:01)
[2017-12-17] MEDS: Bacitracin OINT 15GM TOP SCH ×2 (11:02→17:00)
--- NOTE | 2017-12-17 11:37 | PCM.BM ---
Treatment Plan Problems - Problems identified on initial assessmt Agitated/aggressive behavior Date Initiated: 11/11/17 Time Initiated: 20:55 Assessment reference: NA Status: Active Medication nonadherence Date Initiated: 11/11/17 Time Initiated: 20:58 Assessment reference: NA Status: Active Treatment assets and liabiliti Patient Liabilities: poor support system, imparied memory - Milieu Protocol Maintain good personal hygiene: daily Encourage regular showers, daily Remind patient to perform daily oral care, daily Assist patient to perform ADL's Conduct patient checks and document Observation sheet: Q15 minutes Maintain personal safety: every shift Educate patient to report safety concerns to staff, every shift Monitor environment for contraband/sharps Medication safety: Monitor for expected outcome, potential side effects: every shift, Assess barriers to learning: every shift, Assess readiness for medication education: every shift Milieu Narrative: Dementia w/ Behavioral Disturbances; Patient is psychiatrically stable for referral to long term facility. -Individual and group therapy -Psychoeducation -Continue Aricept 5 mg PO HS -Continue Depakote 750 mg PO BID for seizures and mood stabilization; VPA 81.3 on 12/01/17 -Continue Trazodone 50 mg PO HS -Medicine consult; completed treatment for UTI -Disposition planning- in the process of referring to long term facilities (see SW notes) Family Contact Family involvement: Family/SO is involved Family contact: Patient agrees to contact, Family has been contacted by patient , Telephone contact initiated by staff Family contact name: Aguilar Fernandez - legal guardian - Outside Agency [facility] involvment: Information-sharing Agency contact number: - Goals for Treatment Patient goals for treatment: Pt to be encouraged to attend activity and clinical groups 3-5x per week to identify at least 2 contributing factors to increased agitation, irritability, and aggression. Psycho-education to be provided to patient/family regarding benefits of medications and treatment adherence. Pt to be encouraged to participate in group milieu to develop effective coping skills to reduce aggression and reduce psychiatric hospitalizations. Coordinate discharge resource needs by providing referral for psychiatric treatment follow up in the community. Discharge/Continuing Care - Education Needs Education Needs: Family Medication, Family Diagnosis/Disease Process, Family Coping Skills, Family Placement options, Family Community resources, Family Activities of Daily Living, Family Uses of Medical Equipment, Family Personal Hygiene/Grooming, Family Aftercare Safety Plan, Patient Coping Skills, Patient Uses of Medical Equipment, Patient Personal Hygiene/Grooming, Patient Aftercare Safety Plan - Discharge Discharge Criteria: Tolerates medication w/o severe side effects, Free of agitation, Normal sleep pattern, Ability to care for self, Reduction of target symptoms Discharge to:: Senior Living - Additional Comments 11/12/17 11:33 Pt discussed in team meeting. Initially pt was agreeable to attend team meeting ; pt assisted by RN, Melinda Hernandez and once pt entered the room pt stated "I wish you the best of luck and thank you for being polite polite." Pt refused to sit down and requested to be brought back to her room. Pt exited room with the assistance of RN. Reason for hospitalization reviewed. Pt's social and medical issues reviewed. Pt's medications reviewed. Tx plan reviewed and discussed. SW to contact legal guardian. SW to continue to follow case. - Treatment Team Participation Patient/Family/SO Statement: Dementia w/ Behavioral Disturbances; Patient is psychiatrically stable for referral to long term facility. -Individual and group therapy -Psychoeducation -Continue Aricept 5 mg PO HS -Continue Depakote 750 mg PO BID for seizures and mood stabilization; VPA 81.3 on 12/01/17 -Continue Trazodone 50 mg PO HS -Medicine consult; completed treatment for UTI -Disposition planning- in the process of referring to long term facilities (see SW notes) Discussed with Family/SO: No Was Patient/Family/SO present at Treatment Team Meeting: Yes Treatment Plan Review Patient participation: No Family/SO/Caregiver participation: No Additional Comments: Pt discussed in team meeting. Pt's progress an bx on the unit reviewed. Pt is less irritable and agitated when re-directed. Pt has not exhibited any aggressive/combative bx's recently. Pt remains disoriented and confused. Pt is compliant with prescribed medication when crushed and put in her food. Pt's sleep improved. Pt's appetite improved. Pt is pending placement. Court appointed temporary guardian and recently appointed permanent guardian, Mr. Aguilar Fernandez are involved in pt's care and placement decision. Principal System Software Engineer resubmitted updated clinical information for [facility] and requested that pt's case be re-evaluated. DON from [facility] to visit pt on the unit next week for possible re-consideration. SW to continue to follow case. - Problem Agitated/aggressive behavior Date Initiated: 11/11/17 Time Initiated: 20:55 Progress toward outcomes: improved (Pt has periods of irritability and agitation when re-directed. No physical aggression noted. Pt is less verbally abusive towards staff.) Medication nonadherence Date Initiated: 11/11/17 Time Initiated: 20:58 Progress toward outcomes: improved (Pt is compliant with medications when crushed and put in food.) - Discharge / Continuing Care Discharge to:: [facility]: Other (Medication management; structured group therapy and environment)
--- NOTE | 2017-12-18 08:26 | PCM.PYCHPN ---
Psychiatric Progress Note - Psychiatric Progress Note Patient seen today, length of contact: Patient evaluated, case discussed with team, chart reviewed Patient Chief Complaint: "I'm fine." Problems Identified/Issues Discussed: No new events. Patient continues to be at her baseline of functioning and is psychiatrically stable for referral to care home facility. A + O x 1. She has chronic poor insight/judgment due to dementia. Diagnostic Results: VPA 34.6 on 11/18/17; VPA 81.3 on 12/01/17 Medication Change: No Medical Record Reviewed: Yes Consults ordered or reviewed: Medicine consult, Neurology consult Mental Status Examination - Cognitive Function Orientation: Person Memory: Impaired Attention: Poor Concentration: Poor Association: Loose Fund of Knowledge: Poor Decription of patient's judgement and insights: Chronic poor I/J due to dementia - Mood Mood: Neutral - Affect Affect: Broad - Speech Speech: Appropriate - Formal Thought Process Formal Thought Process: Loosening of associations Psychotic Thoughts and Behaviors: No AH/VH/paranoia/delusions - Suicidal Ideation Suicidal Ideation: No - Homicidal Ideation Homicidal Ideation: No Goal/Treatment Plan - Goal/Treatment Plan Need for Continued Stay: Severe functional impairment Progress Toward Problem(s) and Goals/Treatment Plan: Dementia w/ Behavioral Disturbances; Patient is psychiatrically stable for referral to care home facility. -Individual and group therapy -Psychoeducation -Continue Aricept 5 mg PO HS -Continue Depakote 750 mg PO BID for seizures and mood stabilization; VPA 81.3 on 12/01/17 -Continue Trazodone 50 mg PO HS -Medicine consult; completed treatment for UTI -Disposition planning- in the process of referring to care home facilities (see SW notes) Estimated Date of D/C: 12/24/17
[2017-12-18] MEDS: Bacitracin OINT 15GM TOP SCH ×2 (08:39→18:28)
[2017-12-18] MEDS: Pantoprazole 40 mg EC Tab PO SCH (08:40)
[2017-12-18] MEDS: Divalproex 125 mg Sprinkle Capsule PO SCH ×2 (08:40→18:28)
[2017-12-18] MEDS: Cholecalciferol 400 Intl Units Tab PO SCH (08:40)
[2017-12-19] MEDS: Divalproex 125 mg Sprinkle Capsule PO SCH ×3 (11:34→18:45)
[2017-12-19] MEDS: Bacitracin OINT 15GM TOP SCH ×2 (11:34→16:58)
[2017-12-19] MEDS: Cholecalciferol 400 Intl Units Tab PO SCH (11:34)
[2017-12-19] MEDS: Pantoprazole 40 mg EC Tab PO SCH (11:35)
[2017-12-20] MEDS: Cholecalciferol 400 Intl Units Tab PO SCH (08:31)
[2017-12-20] MEDS: Pantoprazole 40 mg EC Tab PO SCH (08:32)
[2017-12-20] MEDS: Divalproex 125 mg Sprinkle Capsule PO SCH ×2 (08:33→17:33)
[2017-12-20] MEDS: Bacitracin OINT 15GM TOP SCH ×2 (08:33→17:33)
--- NOTE | 2017-12-20 11:07 | PCM.PYCHPN ---
Psychiatric Progress Note - Psychiatric Progress Note Patient seen today, length of contact: Patient evaluated, case discussed with team, chart reviewed Patient Chief Complaint: "I'm fine." Problems Identified/Issues Discussed: No new events over the weekend. Patient continues to be at her baseline of functioning and is psychiatrically stable for referral to [facility] facility. A + O x 1. She has chronic poor insight/judgment due to dementia. Diagnostic Results: VPA 34.6 on 11/18/17; VPA 81.3 on 12/01/17 Medication Change: No Medical Record Reviewed: Yes Consults ordered or reviewed: Medicine consult, Neurology consult Mental Status Examination - Cognitive Function Orientation: Person Memory: Impaired Attention: Poor Concentration: Poor Association: Loose Fund of Knowledge: Poor Decription of patient's judgement and insights: Chronic poor I/J due to dementia - Mood Mood: Neutral - Affect Affect: Broad - Speech Speech: Appropriate - Formal Thought Process Formal Thought Process: Loosening of associations Psychotic Thoughts and Behaviors: No AH/VH/paranoia/delusions - Suicidal Ideation Suicidal Ideation: No - Homicidal Ideation Homicidal Ideation: No Goal/Treatment Plan - Goal/Treatment Plan Need for Continued Stay: Severe functional impairment Progress Toward Problem(s) and Goals/Treatment Plan: Dementia w/ Behavioral Disturbances; Patient is psychiatrically stable for referral to [facility] facility. -Individual and group therapy -Psychoeducation -Continue Aricept 5 mg PO HS -Continue Depakote 750 mg PO BID for seizures and mood stabilization; VPA 81.3 on 12/01/17 -Continue Trazodone 50 mg PO HS -Medicine consult; completed treatment for UTI -Disposition planning- in the process of referring to [facility] facilities (see SW notes) Estimated Date of D/C: 12/24/17
[2017-12-21] MEDS: Bacitracin OINT 15GM TOP SCH (08:04)
[2017-12-21] MEDS: Divalproex 125 mg Sprinkle Capsule PO SCH ×2 (08:04→17:30)
[2017-12-21] MEDS: Pantoprazole 40 mg EC Tab PO SCH (08:05)
[2017-12-21] MEDS: Cholecalciferol 400 Intl Units Tab PO SCH (08:05)
--- NOTE | 2017-12-21 10:59 | PCM.PYCHPN ---
Psychiatric Progress Note - Psychiatric Progress Note Patient seen today, length of contact: Patient evaluated, case discussed with team, chart reviewed Patient Chief Complaint: "I'm fine." Problems Identified/Issues Discussed: No new events. Patient continues to be at her baseline of functioning and is psychiatrically stable for referral to [facility] facility. A + O x 1. She has chronic poor insight/judgment due to dementia. Diagnostic Results: VPA 34.6 on 11/18/17; VPA 81.3 on 12/01/17 Medication Change: No Medical Record Reviewed: Yes Consults ordered or reviewed: Medicine consult, Neurology consult Mental Status Examination - Cognitive Function Orientation: Person Memory: Impaired Attention: Poor Concentration: Poor Association: Loose Fund of Knowledge: Poor Decription of patient's judgement and insights: Chronic poor I/J due to dementia - Mood Mood: Neutral - Affect Affect: Broad - Speech Speech: Appropriate - Formal Thought Process Formal Thought Process: Loosening of associations Psychotic Thoughts and Behaviors: No AH/VH/paranoia/delusions - Suicidal Ideation Suicidal Ideation: No - Homicidal Ideation Homicidal Ideation: No Goal/Treatment Plan - Goal/Treatment Plan Need for Continued Stay: Severe functional impairment Progress Toward Problem(s) and Goals/Treatment Plan: Dementia w/ Behavioral Disturbances; Patient is psychiatrically stable for referral to [facility] facility. -Individual and group therapy -Psychoeducation -Continue Aricept 5 mg PO HS -Continue Depakote 750 mg PO BID for seizures and mood stabilization; VPA 81.3 on 12/01/17 -Continue Trazodone 50 mg PO HS -Medicine consult; completed treatment for UTI -Disposition planning- in the process of referring to [facility] facilities (see SW notes) Estimated Date of D/C: 12/24/17
--- NOTE | 2017-12-22 08:14 | PCM.PYCHPN ---
Psychiatric Progress Note - Psychiatric Progress Note Patient seen today, length of contact: Patient evaluated, case discussed with team, chart reviewed Patient Chief Complaint: "I'm fine." Problems Identified/Issues Discussed: No new events overnight. Patient continues to be at her baseline of functioning and is psychiatrically stable for referral to long term facility. A + O x 1. She has chronic poor insight/judgment due to dementia. Diagnostic Results: VPA 34.6 on 11/18/17; VPA 81.3 on 12/01/17 Medication Change: No Medical Record Reviewed: Yes Consults ordered or reviewed: Medicine consult, Neurology consult Mental Status Examination - Cognitive Function Orientation: Person Memory: Impaired Attention: Poor Concentration: Poor Association: Loose Fund of Knowledge: Poor Decription of patient's judgement and insights: Chronic poor I/J due to dementia - Mood Mood: Neutral - Affect Affect: Broad - Speech Speech: Appropriate - Formal Thought Process Formal Thought Process: Loosening of associations Psychotic Thoughts and Behaviors: No AH/VH/paranoia/delusions - Suicidal Ideation Suicidal Ideation: No - Homicidal Ideation Homicidal Ideation: No Goal/Treatment Plan - Goal/Treatment Plan Need for Continued Stay: Severe functional impairment Progress Toward Problem(s) and Goals/Treatment Plan: Dementia w/ Behavioral Disturbances; Patient is psychiatrically stable for referral to long term facility. -Individual and group therapy -Psychoeducation -Continue Aricept 5 mg PO HS -Continue Depakote 750 mg PO BID for seizures and mood stabilization; VPA 81.3 on 12/01/17 -Continue Trazodone 50 mg PO HS -Medicine consult; completed treatment for UTI -Disposition planning- in the process of referring to long term facilities (see SW notes) Estimated Date of D/C: 12/31/17
[2017-12-22] MEDS: Cholecalciferol 400 Intl Units Tab PO SCH (10:58)
[2017-12-22] MEDS: Pantoprazole 40 mg EC Tab PO SCH (10:58)
[2017-12-22] MEDS: Divalproex 125 mg Sprinkle Capsule PO SCH ×2 (10:59→17:02)
[2017-12-22] MEDS: Bacitracin OINT 15GM TOP SCH ×2 (11:00→17:03)
[2017-12-22 12:00] VITALS: BMI 17.2
--- NOTE | 2017-12-23 08:37 | PCM.PYCHPN ---
Psychiatric Progress Note - Psychiatric Progress Note Patient seen today, length of contact: Patient evaluated, case discussed with team, chart reviewed Patient Chief Complaint: "I'm fine." Problems Identified/Issues Discussed: No new events. Patient continues to be at her baseline of functioning and is psychiatrically stable for referral to [facility] facility. A + O x 1. She has chronic poor insight/judgment due to dementia. Diagnostic Results: VPA 34.6 on 11/18/17; VPA 81.3 on 12/01/17 Medication Change: No Medical Record Reviewed: Yes Consults ordered or reviewed: Medicine consult, Neurology consult Mental Status Examination - Cognitive Function Orientation: Person Memory: Impaired Attention: Poor Concentration: Poor Association: Loose Fund of Knowledge: Poor Decription of patient's judgement and insights: Chronic poor I/J due to dementia - Mood Mood: Neutral - Affect Affect: Broad - Speech Speech: Appropriate - Formal Thought Process Formal Thought Process: Loosening of associations Psychotic Thoughts and Behaviors: No AH/VH/paranoia/delusions - Suicidal Ideation Suicidal Ideation: No - Homicidal Ideation Homicidal Ideation: No Goal/Treatment Plan - Goal/Treatment Plan Need for Continued Stay: Severe functional impairment Progress Toward Problem(s) and Goals/Treatment Plan: Dementia w/ Behavioral Disturbances; Patient is psychiatrically stable for referral to [facility] facility. -Individual and group therapy -Psychoeducation -Continue Aricept 5 mg PO HS -Continue Depakote 750 mg PO BID for seizures and mood stabilization; VPA 81.3 on 12/01/17 -Continue Trazodone 50 mg PO HS -Medicine consult; completed treatment for UTI -Disposition planning- in the process of referring to [facility] facilities (see SW notes) Estimated Date of D/C: 12/31/17
[2017-12-23] MEDS: Bacitracin OINT 15GM TOP SCH ×2 (09:20→17:02)
[2017-12-23] MEDS: Cholecalciferol 400 Intl Units Tab PO SCH (09:21)
[2017-12-23] MEDS: Divalproex 125 mg Sprinkle Capsule PO SCH ×2 (09:21→17:01)
[2017-12-23] MEDS: Pantoprazole 40 mg EC Tab PO SCH (09:21)
--- NOTE | 2017-12-24 08:17 | PCM.PYCHPN ---
Psychiatric Progress Note - Psychiatric Progress Note Patient seen today, length of contact: Patient evaluated, case discussed with team, chart reviewed Patient Chief Complaint: "I'm fine." Problems Identified/Issues Discussed: Patient continues to be at her baseline of functioning and is psychiatrically stable for referral to prison facility. A + O x 1. She has chronic poor insight/judgment due to dementia. Diagnostic Results: VPA 34.6 on 11/18/17; VPA 81.3 on 12/01/17 Medication Change: No Medical Record Reviewed: Yes Consults ordered or reviewed: Medicine consult, Neurology consult Mental Status Examination - Cognitive Function Orientation: Person Memory: Impaired Attention: Poor Concentration: Poor Association: Loose Fund of Knowledge: Poor Decription of patient's judgement and insights: Chronic poor I/J due to dementia - Mood Mood: Neutral - Affect Affect: Broad - Speech Speech: Appropriate - Formal Thought Process Formal Thought Process: Loosening of associations Psychotic Thoughts and Behaviors: No AH/VH/paranoia/delusions - Suicidal Ideation Suicidal Ideation: No - Homicidal Ideation Homicidal Ideation: No Goal/Treatment Plan - Goal/Treatment Plan Need for Continued Stay: Severe functional impairment Progress Toward Problem(s) and Goals/Treatment Plan: Dementia w/ Behavioral Disturbances; Patient is psychiatrically stable for referral to prison facility. -Individual and group therapy -Psychoeducation -Continue Aricept 5 mg PO HS -Continue Depakote 750 mg PO BID for seizures (as per neurology consult recommendations) and mood stabilization; VPA 81.3 on 12/01/17 -Continue Trazodone 50 mg PO HS -Medicine consult -Disposition planning- in the process of referring to prison facilities (see SW notes) Estimated Date of D/C: 01/03/18
[2017-12-24] MEDS: Pantoprazole 40 mg EC Tab PO SCH (11:53)
[2017-12-24] MEDS: Bacitracin OINT 15GM TOP SCH ×2 (11:54→16:29)
[2017-12-24] MEDS: Cholecalciferol 400 Intl Units Tab PO SCH (11:54)
[2017-12-24] MEDS: Divalproex 125 mg Sprinkle Capsule PO SCH ×2 (11:54→16:29)
[2017-12-24] MEDS: Alum-Mag Hydrox-Simethicone Susp (30 mL) PO PRN (21:04)
[2017-12-25] MEDS: Divalproex 125 mg Sprinkle Capsule PO SCH ×2 (09:46→16:59)
[2017-12-25] MEDS: Pantoprazole 40 mg EC Tab PO SCH (09:49)
[2017-12-25] MEDS: Cholecalciferol 400 Intl Units Tab PO SCH (09:49)
[2017-12-25] MEDS: Bacitracin OINT 15GM TOP SCH ×2 (12:28→16:58)
[2017-12-26] MEDS: Pantoprazole 40 mg EC Tab PO SCH (08:47)
[2017-12-26] MEDS: Cholecalciferol 400 Intl Units Tab PO SCH (08:47)
[2017-12-26] MEDS: Divalproex 125 mg Sprinkle Capsule PO SCH ×2 (08:47→16:46)
[2017-12-26] MEDS: Bacitracin OINT 15GM TOP SCH ×2 (08:48→16:47)
[2017-12-27] MEDS: Divalproex 125 mg Sprinkle Capsule PO SCH ×2 (10:36→17:00)
[2017-12-27] MEDS: Cholecalciferol 400 Intl Units Tab PO SCH (10:37)
[2017-12-27] MEDS: Pantoprazole 40 mg EC Tab PO SCH (10:38)
[2017-12-27] MEDS: Bacitracin OINT 15GM TOP SCH ×2 (10:45→16:31)
--- NOTE | 2017-12-27 18:22 | PCM.PYCHPN ---
Psychiatric Progress Note - Psychiatric Progress Note Patient seen today, length of contact: Patient evaluated, case discussed with team, chart reviewed Patient Chief Complaint: pt seen frequently at nurse's station, requires frequent redirection, requires total care appears to be at baseline pending placement Problems Identified/Issues Discussed: easily redirectable notable more smiling at times, less labile taking rx with redirection per staff pt somewhat calmer, sleep improved, Medical Problems: per chart Diagnostic Results: per psychiatry per medicine per nursing per social work per recreational therapy DSM 5 Symptoms Update: appears baseline cognitive function Medication Change: No Medical Record Reviewed: Yes Consults ordered or reviewed: pt followed by hospitalist i Mental Status Examination - Cognitive Function Orientation: Person Memory: Impaired Attention: Poor Concentration: Poor Association: Loose Fund of Knowledge: Poor Decription of patient's judgement and insights: poor - Mood Mood: Neutral - Affect Affect: Broad - Speech Speech: Appropriate - Formal Thought Process Formal Thought Process: Loosening of associations - Suicidal Ideation Suicidal Ideation: No - Homicidal Ideation Homicidal Ideation: No Goal/Treatment Plan - Goal/Treatment Plan Need for Continued Stay: Severe functional impairment, Other Progress Toward Problem(s) and Goals/Treatment Plan: inpt milieu clinical observation and vital signs per protocol and per clinical status adjust meds per status requires total care structure pt has guardian pending placement ltc Estimated Date of D/C: 01/03/18 - Smoking Cessation Smoking Cessation Initiated: No Reason for not providing: deferred
[2017-12-28] MEDS: Pantoprazole 40 mg EC Tab PO SCH (10:52)
[2017-12-28] MEDS: Divalproex 125 mg Sprinkle Capsule PO SCH ×2 (10:52→17:52)
[2017-12-28] MEDS: Cholecalciferol 400 Intl Units Tab PO SCH (10:52)
[2017-12-28] MEDS: Bacitracin OINT 15GM TOP SCH ×2 (10:53→17:51)
--- NOTE | 2017-12-28 13:19 | PCM.BM ---
Treatment Plan Problems - Problems identified on initial assessmt Agitated/aggressive behavior Date Initiated: 11/11/17 Time Initiated: 20:55 Assessment reference: NA Status: Active Medication nonadherence Date Initiated: 11/11/17 Time Initiated: 20:58 Assessment reference: NA Status: Active Treatment assets and liabiliti Patient Liabilities: poor support system, imparied memory - Milieu Protocol Maintain good personal hygiene: daily Encourage regular showers, daily Remind patient to perform daily oral care, daily Assist patient to perform ADL's Conduct patient checks and document Observation sheet: Q15 minutes Maintain personal safety: every shift Educate patient to report safety concerns to staff, every shift Monitor environment for contraband/sharps Medication safety: Monitor for expected outcome, potential side effects: every shift, Assess barriers to learning: every shift, Assess readiness for medication education: every shift Milieu Narrative: inpt milieu clinical observation and vital signs per protocol and per clinical status adjust meds per status requires total care structure pt has guardian pending placement ltc Family Contact Family involvement: Family/SO is involved Family contact: Patient agrees to contact, Family has been contacted by patient , Telephone contact initiated by staff Family contact name: Aguilar Fernandez - legal guardian - Outside Agency [facility] involvment: Information-sharing Agency contact number: - Goals for Treatment Patient goals for treatment: Pt to be encouraged to attend activity and clinical groups 3-5x per week to identify at least 2 contributing factors to increased agitation, irritability, and aggression. Psycho-education to be provided to patient/family regarding benefits of medications and treatment adherence. Pt to be encouraged to participate in group milieu to develop effective coping skills to reduce aggression and reduce psychiatric hospitalizations. Coordinate discharge resource needs by providing referral for psychiatric treatment follow up in the community. Discharge/Continuing Care - Education Needs Education Needs: Family Medication, Family Diagnosis/Disease Process, Family Coping Skills, Family Placement options, Family Community resources, Family Activities of Daily Living, Family Uses of Medical Equipment, Family Personal Hygiene/Grooming, Family Aftercare Safety Plan, Patient Coping Skills, Patient Uses of Medical Equipment, Patient Personal Hygiene/Grooming, Patient Aftercare Safety Plan - Discharge Discharge Criteria: Tolerates medication w/o severe side effects, Free of agitation, Normal sleep pattern, Ability to care for self, Reduction of target symptoms Discharge to:: Retirement - Additional Comments 11/12/17 11:33 Pt discussed in team meeting. Initially pt was agreeable to attend team meeting ; pt assisted by RN, Melinda Hernandez and once pt entered the room pt stated "I wish you the best of luck and thank you for being polite polite." Pt refused to sit down and requested to be brought back to her room. Pt exited room with the assistance of RN. Reason for hospitalization reviewed. Pt's social and medical issues reviewed. Pt's medications reviewed. Tx plan reviewed and discussed. SW to contact legal guardian. SW to continue to follow case. - Treatment Team Participation Patient/Family/SO Statement: inpt milieu clinical observation and vital signs per protocol and per clinical status adjust meds per status requires total care structure pt has guardian pending placement ltc Discussed with Family/SO: No Was Patient/Family/SO present at Treatment Team Meeting: Yes Treatment Plan Review Patient participation: No Family/SO/Caregiver participation: No Additional Comments: LATE ENTRY FROM 12/24/2017: Pt discussed in team meeting. Pt's progress and bx on the unit reviewed and discussed. Pt is pending placement. Pt is less irritable and agitated. Pt has not exhibited any aggressive bx's. Pt is compliant with medications. Pt continues to wander the unit. SW to continue to follow case. - Problem Agitated/aggressive behavior Date Initiated: 11/11/17 Time Initiated: 20:55 Progress toward outcomes: improved (Pt has periods of irritability and agitation when re-directed. No physical aggression noted.) Medication nonadherence Date Initiated: 11/11/17 Time Initiated: 20:58 Progress toward outcomes: improved (Pt is compliant with medications when crushed and put in food.) - Discharge / Continuing Care Discharge to:: [facility] Behavioral Health Services: Other ([facility] management) Health Needs: Follow up care/test, Nutritional, Medications/Rx, Educational, Recreational/Social
--- NOTE | 2017-12-28 19:28 | PCM.PYCHPN ---
Psychiatric Progress Note - Psychiatric Progress Note Patient seen today, length of contact: Patient evaluated, case discussed with team, chart reviewed Patient Chief Complaint: pt seen frequently at nurse's station, requires frequent redirection, requires total care appears to be at baseline pending placement Problems Identified/Issues Discussed: easily redirectable notable more smiling at times, less labile taking rx with redirection per staff pt somewhat calmer, sleep improved, Medical Problems: per chart Diagnostic Results: per psychiatry per medicine per nursing per social work per recreational therapy DSM 5 Symptoms Update: appears to be at cognitive baseline pending ltc Medication Change: No Medical Record Reviewed: Yes Consults ordered or reviewed: pt seen by hospitalist Mental Status Examination - Cognitive Function Orientation: Person Memory: Impaired Attention: Poor Concentration: Poor Association: Loose Fund of Knowledge: Poor Decription of patient's judgement and insights: poor - Mood Mood: Neutral - Affect Affect: Broad - Speech Speech: Appropriate - Formal Thought Process Formal Thought Process: Loosening of associations - Suicidal Ideation Suicidal Ideation: No - Homicidal Ideation Homicidal Ideation: No Goal/Treatment Plan - Goal/Treatment Plan Need for Continued Stay: Severe functional impairment, Other Progress Toward Problem(s) and Goals/Treatment Plan: inpt milieu clinical observation and vital signs per protocol and per clinical status adjust meds per status requires total care structure pt has guardian pending placement ltc Estimated Date of D/C: 01/03/18 - Smoking Cessation Smoking Cessation Initiated: No Reason for not providing: pt defers
[2017-12-29] MEDS: Divalproex 125 mg Sprinkle Capsule PO SCH ×2 (09:33→16:55)
[2017-12-29] MEDS: Cholecalciferol 400 Intl Units Tab PO SCH (09:34)
[2017-12-29] MEDS: Pantoprazole 40 mg EC Tab PO SCH (09:35)
--- NOTE | 2017-12-29 16:56 | PCM.PYCHPN ---
Psychiatric Progress Note - Psychiatric Progress Note Patient seen today, length of contact: Patient evaluated, case discussed with team, chart reviewed Patient Chief Complaint: pt seen frequently at nurse's station, requires frequent redirection, requires total care appears to be at baseline, is noted to smile and at times laughs appropriately pt is pending placement Problems Identified/Issues Discussed: easily redirectable notable more smiling at times, less labile taking rx with redirection per staff pt somewhat calmer, sleep improved, Medical Problems: per chart Diagnostic Results: per psychiatry per medicine per nursing per social work per recreational therapy DSM 5 Symptoms Update: baseline cognitive function requires total care Medication Change: No Medical Record Reviewed: Yes Consults ordered or reviewed: pt.seen by hospitalist Mental Status Examination - Cognitive Function Orientation: Person Memory: Impaired Attention: Poor Concentration: Poor Association: Loose Fund of Knowledge: Poor Decription of patient's judgement and insights: poor - Mood Mood: Neutral - Affect Affect: Broad - Speech Speech: Appropriate - Formal Thought Process Formal Thought Process: Loosening of associations - Suicidal Ideation Suicidal Ideation: No - Homicidal Ideation Homicidal Ideation: No Goal/Treatment Plan - Goal/Treatment Plan Need for Continued Stay: Severe functional impairment, Other Progress Toward Problem(s) and Goals/Treatment Plan: inpt milieu clinical observation and vital signs per protocol and per clinical status adjust meds per status requires total care structure pt has guardian pending placement ltc Estimated Date of D/C: 01/03/18 - Smoking Cessation Smoking Cessation Initiated: No Reason for not providing: pt defers
[2017-12-30] MEDS: Divalproex 125 mg Sprinkle Capsule PO SCH ×2 (09:28→17:50)
[2017-12-30] MEDS: Pantoprazole 40 mg EC Tab PO SCH (09:31)
[2017-12-30] MEDS: Cholecalciferol 400 Intl Units Tab PO SCH (09:31)
--- NOTE | 2017-12-30 13:57 | PCM.BM ---
Treatment Plan Problems - Problems identified on initial assessmt Agitated/aggressive behavior Date Initiated: 11/11/17 Time Initiated: 20:55 Assessment reference: NA Status: Active Medication nonadherence Date Initiated: 11/11/17 Time Initiated: 20:58 Assessment reference: NA Status: Active Treatment assets and liabiliti Patient Liabilities: poor support system, imparied memory - Milieu Protocol Maintain good personal hygiene: daily Encourage regular showers, daily Remind patient to perform daily oral care, daily Assist patient to perform ADL's Conduct patient checks and document Observation sheet: Q15 minutes Maintain personal safety: every shift Educate patient to report safety concerns to staff, every shift Monitor environment for contraband/sharps Medication safety: Monitor for expected outcome, potential side effects: every shift, Assess barriers to learning: every shift, Assess readiness for medication education: every shift Milieu Narrative: inpt milieu clinical observation and vital signs per protocol and per clinical status adjust meds per status requires total care structure pt has guardian pending placement ltc Family Contact Family involvement: Family/SO is involved Family contact: Patient agrees to contact, Family has been contacted by patient , Telephone contact initiated by staff Family contact name: Aguilar Fernandez - legal guardian - Outside Agency [facility] [place] involvment: Information-sharing Agency contact number: - Goals for Treatment Patient goals for treatment: Pt to be encouraged to attend activity and clinical groups 3-5x per week to identify at least 2 contributing factors to increased agitation, irritability, and aggression. Psycho-education to be provided to patient/family regarding benefits of medications and treatment adherence. Pt to be encouraged to participate in group milieu to develop effective coping skills to reduce aggression and reduce psychiatric hospitalizations. Coordinate discharge resource needs by providing referral for psychiatric treatment follow up in the community. Discharge/Continuing Care - Education Needs Education Needs: Family Medication, Family Diagnosis/Disease Process, Family Coping Skills, Family Placement options, Family Community resources, Family Activities of Daily Living, Family Uses of Medical Equipment, Family Personal Hygiene/Grooming, Family Aftercare Safety Plan, Patient Coping Skills, Patient Uses of Medical Equipment, Patient Personal Hygiene/Grooming, Patient Aftercare Safety Plan - Discharge Discharge Criteria: Tolerates medication w/o severe side effects, Free of agitation, Normal sleep pattern, Ability to care for self, Reduction of target symptoms [facility]:: [facility] - Additional Comments 11/12/17 11:33 Pt discussed in team meeting. Initially pt was agreeable to attend team meeting ; pt assisted by RN, Melinda Hernandez and once pt entered the room pt stated "I wish you the best of luck and thank you for being polite polite." Pt refused to sit down and requested to be brought back to her room. Pt exited room with the assistance of RN. Reason for hospitalization reviewed. Pt's social and medical issues reviewed. Pt's medications reviewed. Tx plan reviewed and discussed. SW to contact legal guardian. SW to continue to follow case. - Treatment Team Participation Patient/Family/SO Statement: inpt milieu clinical observation and vital signs per protocol and per clinical status adjust meds per status requires total care structure pt has guardian pending placement ltc Discussed with Family/SO: No Was Patient/Family/SO present at Treatment Team Meeting: Yes Treatment Plan Review Patient participation: No Family/SO/Caregiver participation: No Additional Comments: Pt discussed in team meeting. Pt's progress and bx on the unit reviewed. Pt is less irritable and agitated. Pt is re-directable. Pt compliant wit medications. Pt's sleep is improved. Pt remains confused and oriented to person only. Pt has been clinically accepted by 2 facilities for long term care pharmacist care, guardian working on the financial piece. Mine Motor Engineer will continue to follow case. - Problem Agitated/aggressive behavior Date Initiated: 11/11/17 Time Initiated: 20:55 Progress toward outcomes: improved (Pt has periods of irritability and agitation when re-directed. No physical aggression noted.) Medication nonadherence Date Initiated: 11/11/17 Time Initiated: 20:58 Progress toward outcomes: resolved (Pt is compliant with medications when crushed and put in food.) Date resolved: 12/27/17 - Discharge / Continuing Care Discharge to:: [facility] Services: Other (Medication management; structured group therapy) Health Needs: Follow up care/test, Doctor appointments, Special equipment, Nutritional, Medications/Rx, Recreational/Social
--- NOTE | 2017-12-30 16:57 | PCM.PYCHPN ---
Psychiatric Progress Note - Psychiatric Progress Note Patient seen today, length of contact: Patient evaluated, case discussed with team, chart reviewed Patient Chief Complaint: pt seen frequently at nurse's station, requires frequent redirection, requires total care appears to be at baseline, is noted to smile and at times laughs appropriately pt is pending placement. maintenance team leader has been in contact with ltc- discharge planning in process. Problems Identified/Issues Discussed: easily redirectable notable more smiling at times, less labile taking rx with redirection per staff pt somewhat calmer, sleep improved, appears to be at baseline cognitive status Medical Problems: per chart Diagnostic Results: per psychiatry per medicine per nursing per social work per recreational therapy DSM 5 Symptoms Update: baseline cognitive status requires total care Medication Change: No Medical Record Reviewed: Yes Consults ordered or reviewed: hospitalist evaluated pt. Mental Status Examination - Cognitive Function Orientation: Person Memory: Impaired Attention: Poor Concentration: Poor Association: Loose Fund of Knowledge: Poor Decription of patient's judgement and insights: poor - Mood Mood: Neutral - Affect Affect: Broad - Speech Speech: Appropriate, Soft - Formal Thought Process Formal Thought Process: Loosening of associations - Suicidal Ideation Suicidal Ideation: No - Homicidal Ideation Homicidal Ideation: No Goal/Treatment Plan - Goal/Treatment Plan Need for Continued Stay: Severe functional impairment, Other Progress Toward Problem(s) and Goals/Treatment Plan: inpt milieu clinical observation and vital signs per protocol and per clinical status adjust meds per status requires total care structure pt has guardian pending placement ltc Estimated Date of D/C: 01/03/18 - Smoking Cessation Smoking Cessation Initiated: No Reason for not providing: pt defers
[2017-12-31] MEDS: Divalproex 125 mg Sprinkle Capsule PO SCH ×2 (08:09→16:56)
[2017-12-31] MEDS: Pantoprazole 40 mg EC Tab PO SCH (08:10)
[2017-12-31] MEDS: Cholecalciferol 400 Intl Units Tab PO SCH (08:11)
--- NOTE | 2017-12-31 17:24 | PCM.PYCHPN ---
Psychiatric Progress Note - Psychiatric Progress Note Patient seen today, length of contact: Patient evaluated, case discussed with team, chart reviewed Patient Chief Complaint: pt seen frequently at nurse's station, requires frequent redirection, requires total care appears to be at baseline, is noted to smile and at times laughs appropriately pt is pending placement. teamcenter solution architect has been in contact with ltc- discharge planning in process. Problems Identified/Issues Discussed: pt eats with set of meals, easily redirectable notable more smiling at times, less labile taking rx with redirection per staff pt somewhat calmer, sleep improved, appears to be at baseline cognitive status Medical Problems: per chart Diagnostic Results: per psychiatry per medicine per nursing per social work per recreational therapy DSM 5 Symptoms Update: baseline cognitive status requires total care Medication Change: No Medical Record Reviewed: Yes Consults ordered or reviewed: pt seen by hospitalist Mental Status Examination - Cognitive Function Orientation: Person Memory: Impaired Attention: Poor Concentration: Poor Association: Loose Fund of Knowledge: Poor Decription of patient's judgement and insights: poor - Mood Mood: Neutral - Affect Affect: Broad - Speech Speech: Appropriate, Soft - Formal Thought Process Formal Thought Process: Loosening of associations - Suicidal Ideation Suicidal Ideation: No - Homicidal Ideation Homicidal Ideation: No Goal/Treatment Plan - Goal/Treatment Plan Need for Continued Stay: Severe functional impairment, Other Progress Toward Problem(s) and Goals/Treatment Plan: inpt milieu clinical observation and vital signs per protocol and per clinical status adjust meds per status requires total care structure pt has guardian pending placement ltc Estimated Date of D/C: 01/03/18 - Smoking Cessation Smoking Cessation Initiated: No Reason for not providing: pt defers
[2018-01-01] MEDS: Divalproex 125 mg Sprinkle Capsule PO SCH ×2 (08:48→16:09)
[2018-01-01] MEDS: Pantoprazole 40 mg EC Tab PO SCH (08:50)
[2018-01-01] MEDS: Cholecalciferol 400 Intl Units Tab PO SCH (08:50)
--- NOTE | 2018-01-01 11:37 | PCM.PYCHPN ---
Psychiatric Progress Note - Psychiatric Progress Note Patient seen today, length of contact: Patient evaluated, case discussed with team, chart reviewed Patient Chief Complaint: I am ok Problems Identified/Issues Discussed: pt seen in bed, confused , oriented to person only , no behaviopral disturbances reported by staff , no noted side effects of medications, no reported S/HI DSM 5 Symptoms Update: MAJOR NEUROCOGNITIVE DISORDER Medication Change: No Medical Record Reviewed: Yes Mental Status Examination - Cognitive Function Orientation: Person Memory: Impaired Attention: Poor Concentration: Poor Association: Loose Fund of Knowledge: Poor - Mood Mood: Neutral - Affect Affect: Broad - Speech Speech: Appropriate, Soft - Formal Thought Process Formal Thought Process: Loosening of associations - Suicidal Ideation Suicidal Ideation: No - Homicidal Ideation Homicidal Ideation: No Goal/Treatment Plan - Goal/Treatment Plan Need for Continued Stay: Severe functional impairment, Other Progress Toward Problem(s) and Goals/Treatment Plan: continue with current medications group and supportive therapy Estimated Date of D/C: 01/03/18
[2018-01-02] MEDS: Divalproex 125 mg Sprinkle Capsule PO SCH ×2 (10:11→17:05)
[2018-01-02] MEDS: Cholecalciferol 400 Intl Units Tab PO SCH (10:13)
[2018-01-02] MEDS: Pantoprazole 40 mg EC Tab PO SCH (10:17)
--- NOTE | 2018-01-02 12:22 | PCM.PYCHPN ---
Psychiatric Progress Note - Psychiatric Progress Note Patient seen today, length of contact: Patient evaluated, case discussed with team, chart reviewed Patient Chief Complaint: I want your qualifications Problems Identified/Issues Discussed: pt seen in bed, confused , oriented to person only , no behaviopral disturbances reported by staff , no noted side effects of medications, no reported S/HI DSM 5 Symptoms Update: major neurocognitive disorder Medication Change: No Medical Record Reviewed: Yes Mental Status Examination - Cognitive Function Orientation: Person Memory: Impaired Attention: Poor Concentration: Poor Association: Loose Fund of Knowledge: Poor - Mood Mood: Neutral - Affect Affect: Broad - Speech Speech: Appropriate, Soft - Formal Thought Process Formal Thought Process: Loosening of associations - Suicidal Ideation Suicidal Ideation: No - Homicidal Ideation Homicidal Ideation: No Goal/Treatment Plan - Goal/Treatment Plan Need for Continued Stay: Severe functional impairment, Other Progress Toward Problem(s) and Goals/Treatment Plan: continue with current medications group and supportive therapy Estimated Date of D/C: 01/03/18
[2018-01-02] MEDS ORDERED: Artificial Tears Opht Soln OU PRN (20:38)
--- NOTE | 2018-01-03 08:08 | PCM.PYCHPN ---
Psychiatric Progress Note - Psychiatric Progress Note Patient seen today, length of contact: Patient evaluated, case discussed with team, chart reviewed Patient Chief Complaint: "I'm fine." Problems Identified/Issues Discussed: Patient continues to be at her baseline of functioning and is psychiatrically stable for referral to half-way facility. A + O x 1. She has chronic poor insight/judgment due to dementia. Diagnostic Results: VPA 34.6 on 11/18/17; VPA 81.3 on 12/01/17 Medication Change: No Medical Record Reviewed: Yes Consults ordered or reviewed: Medicine consult, Neurology consult Mental Status Examination - Cognitive Function Orientation: Person Memory: Impaired Attention: Poor Concentration: Poor Association: Loose Fund of Knowledge: Poor Decription of patient's judgement and insights: Chronic poor I/J due to dementia - Mood Mood: Neutral - Affect Affect: Broad - Speech Speech: Appropriate, Soft - Formal Thought Process Formal Thought Process: Loosening of associations Psychotic Thoughts and Behaviors: NO AH/VH/paranoia/delusions - Suicidal Ideation Suicidal Ideation: No - Homicidal Ideation Homicidal Ideation: No Goal/Treatment Plan - Goal/Treatment Plan Need for Continued Stay: Severe functional impairment Progress Toward Problem(s) and Goals/Treatment Plan: Dementia w/ Behavioral Disturbances; Patient is psychiatrically stable for referral to half-way facility. -Individual and group therapy -Psychoeducation -Continue Aricept 5 mg PO HS -Continue Depakote 750 mg PO BID for seizures (as per neurology consult recommendations) and mood stabilization; VPA 81.3 on 12/01/17 -Continue Trazodone 50 mg PO HS -Medicine consult -Disposition planning- in the process of referring to half-way facilities (see SW notes) Estimated Date of D/C: 01/07/18
[2018-01-03] MEDS: Pantoprazole 40 mg EC Tab PO SCH (09:13)
[2018-01-03] MEDS: Divalproex 125 mg Sprinkle Capsule PO SCH ×2 (09:13→17:09)
[2018-01-03] MEDS: Cholecalciferol 400 Intl Units Tab PO SCH (09:13)
[2018-01-04] MEDS: Cholecalciferol 400 Intl Units Tab PO SCH (09:49)
[2018-01-04] MEDS: Pantoprazole 40 mg EC Tab PO SCH (09:49)
[2018-01-04] MEDS: Divalproex 125 mg Sprinkle Capsule PO SCH ×2 (09:49→19:01)
--- NOTE | 2018-01-04 17:41 | PCM.PYCHPN ---
Psychiatric Progress Note - Psychiatric Progress Note Patient seen today, length of contact: Patient evaluated, case discussed with team, chart reviewed Patient Chief Complaint: pt seen frequently at nurse's station, requires frequent redirection, requires total care appears to be at baseline, is noted to smile and at times laughs appropriately pt is pending placement. production team manager has been in contact with ltc- discharge planning in process/notes reflect significant other has chosen a ltc facitity.. Problems Identified/Issues Discussed: baseline cognitive function requires total pending ltc placement Medical Problems: per chart Diagnostic Results: per psychiatry per medicine per nursing per social work per recreational therapy DSM 5 Symptoms Update: baseline cognitive function requires total care Medication Change: No Medical Record Reviewed: Yes Consults ordered or reviewed: pt seen by hospitalist Mental Status Examination - Cognitive Function Orientation: Person Memory: Impaired Attention: Poor Concentration: Poor Association: Loose Fund of Knowledge: Poor Decription of patient's judgement and insights: poor - Mood Mood: Neutral - Affect Affect: Broad - Speech Speech: Appropriate, Soft - Formal Thought Process Formal Thought Process: Loosening of associations - Suicidal Ideation Suicidal Ideation: No - Homicidal Ideation Homicidal Ideation: No Goal/Treatment Plan - Goal/Treatment Plan Need for Continued Stay: Severe functional impairment Progress Toward Problem(s) and Goals/Treatment Plan: inpt milieu clinical observation and vital signs per protocol and per clinical status adjust meds per status requires total care structure anc care will obtain valproic acid level in am pt has guardian pending placement ltc Estimated Date of D/C: 01/07/18 - Smoking Cessation Smoking Cessation Initiated: No Reason for not providing: pt defers
[2018-01-05] MEDS: Cholecalciferol 400 Intl Units Tab PO SCH (10:03)
[2018-01-05] MEDS: Divalproex 125 mg Sprinkle Capsule PO SCH ×2 (10:03→16:54)
[2018-01-05] MEDS: Pantoprazole 40 mg EC Tab PO SCH (10:03)
[2018-01-05 11:41] LABS: BASO % 1.1 % (0.0-2.0); EOS # 0.1 K/uL (0.0-0.7); EOS % 2.4 % (0.0-4.0); HEMOGLOBIN 13.1 g/dL (12.0-16.0); LYMPH # 0.9 K/uL (1.0-4.3); LYMPH % 21.6 % (20.0-40.0); MEAN CORPUSCULAR HEMOGLOBIN 31.1 pg (27.0-31.0); MONO # 0.4 K/uL (0.0-0.8); MONO % 10.6 % (0.0-10.0); NEUT # 2.7 K/uL (1.8-7.0); NEUT % 64.3 % (50.0-75.0); NRBC % 0.2 % (0.0-0.0); RBC 4.22 Mil/uL (3.80-5.20); RED CELL DISTRIBUTION WIDTH 15.1 % (11.5-14.5); WHITE BLOOD COUNT 4.2 K/uL (4.8-10.8)
[2018-01-05 11:46] LABS: ALB/GLOB RATIO 1.4 (1.0-2.1); ALBUMIN 3.7 g/dL (3.5-5.0); ALT/SGPT 26 U/L (9-52); AST/SGOT 26 U/L (14-36); BLOOD UREA NITROGEN 23 mg/dl (7-17); CALCIUM 9.1 mg/dL (8.4-10.2); GFR AFRICAN-AMERICAN > 60; GFR NON-AFRICAN AMERICAN > 60
--- NOTE | 2018-01-05 15:40 | PCM.PYCHPN ---
Psychiatric Progress Note - Psychiatric Progress Note Patient seen today, length of contact: Patient evaluated, case discussed with team, chart reviewed Patient Chief Complaint: pt seen about unit then in room, pacing at times but other times smiling, notes review pt. deferred showering today. lab work reviewed, pt appears baseline cognitive function confused requires redirection pending ltc. Problems Identified/Issues Discussed: baseline cognitive function requires total pending ltc placement, requires total care Medical Problems: per chart Diagnostic Results: per psychiatry per medicine per nursing per social work per recreational therapy DSM 5 Symptoms Update: baseline cognitive function impaired requires total care Medication Change: No Medical Record Reviewed: Yes Consults ordered or reviewed: pt seen by hospitalist Mental Status Examination - Cognitive Function Orientation: Person Memory: Impaired Attention: Poor Concentration: Poor Association: Loose Fund of Knowledge: Poor Decription of patient's judgement and insights: poor - Mood Mood: Neutral - Affect Affect: Broad - Speech Speech: Appropriate, Soft - Formal Thought Process Formal Thought Process: Loosening of associations - Suicidal Ideation Suicidal Ideation: No - Homicidal Ideation Homicidal Ideation: No Goal/Treatment Plan - Goal/Treatment Plan Need for Continued Stay: Severe functional impairment Progress Toward Problem(s) and Goals/Treatment Plan: inpt milieu clinical observation and vital signs per protocol and per clinical status adjust meds per status vpa [id number] 73.4 requires total care structure ltc pt has guardian pending placement ltc Estimated Date of D/C: 01/07/18 - Smoking Cessation Smoking Cessation Initiated: No Reason for not providing: pt deferred
[2018-01-06] MEDS: Divalproex 125 mg Sprinkle Capsule PO SCH ×2 (09:11→17:47)
[2018-01-06] MEDS: Pantoprazole 40 mg EC Tab PO SCH (09:11)
[2018-01-06] MEDS: Cholecalciferol 400 Intl Units Tab PO SCH (09:12)
--- NOTE | 2018-01-06 11:58 | PCM.BM ---
Treatment Plan Problems - Problems identified on initial assessmt Agitated/aggressive behavior Date Initiated: 11/11/17 Time Initiated: 20:55 Assessment reference: NA Status: Active Medication nonadherence Date Initiated: 11/11/17 Time Initiated: 20:58 Assessment reference: NA Status: Active Treatment assets and liabiliti Patient Liabilities: poor support system, imparied memory - Milieu Protocol Maintain good personal hygiene: daily Encourage regular showers, daily Remind patient to perform daily oral care, daily Assist patient to perform ADL's Conduct patient checks and document Observation sheet: Q15 minutes Maintain personal safety: every shift Educate patient to report safety concerns to staff, every shift Monitor environment for contraband/sharps Medication safety: Monitor for expected outcome, potential side effects: every shift, Assess barriers to learning: every shift, Assess readiness for medication education: every shift Milieu Narrative: inpt milieu clinical observation and vital signs per protocol and per clinical status adjust meds per status vpa [id number] 73.4 requires total care structure ltc pt has guardian pending placement lt Family Contact Family involvement: Family/SO is involved Family contact: Patient agrees to contact, Family has been contacted by patient , Telephone contact initiated by staff Family contact name: Aguilar Fernandez - legal guardian - Outside Agency [facility] involvment: Information-sharing Agency contact number: - Goals for Treatment Patient goals for treatment: Pt to be encouraged to attend activity and clinical groups 3-5x per week to identify at least 2 contributing factors to increased agitation, irritability, and aggression. Psycho-education to be provided to patient/family regarding benefits of medications and treatment adherence. Pt to be encouraged to participate in group milieu to develop effective coping skills to reduce aggression and reduce psychiatric hospitalizations. Coordinate discharge resource needs by providing referral for psychiatric treatment follow up in the community. Discharge/Continuing Care - Education Needs Education Needs: Family Medication, Family Diagnosis/Disease Process, Family Coping Skills, Family Placement options, Family Community resources, Family Activities of Daily Living, Family Uses of Medical Equipment, Family Personal Hygiene/Grooming, Family Aftercare Safety Plan, Patient Coping Skills, Patient Uses of Medical Equipment, Patient Personal Hygiene/Grooming, Patient Aftercare Safety Plan - Discharge Discharge Criteria: Tolerates medication w/o severe side effects, Free of agitation, Normal sleep pattern, Ability to care for self, Reduction of target symptoms Discharge to:: [facility] - Additional Comments 11/12/17 11:33 Pt discussed in team meeting. Initially pt was agreeable to attend team meeting ; pt assisted by RN, Melinda Hernandez and once pt entered the room pt stated "I wish you the best of luck and thank you for being polite polite." Pt refused to sit down and requested to be brought back to her room. Pt exited room with the assistance of RN. Reason for hospitalization reviewed. Pt's social and medical issues reviewed. Pt's medications reviewed. Tx plan reviewed and discussed. SW to contact legal guardian. SW to continue to follow case. - Treatment Team Participation Patient/Family/SO Statement: inpt milieu clinical observation and vital signs per protocol and per clinical status adjust meds per status [facility] [id number] 73.4 requires total care structure ltc pt has guardian pending placement ltc Discussed with Family/SO: No Was Patient/Family/SO present at Treatment Team Meeting: Yes Treatment Plan Review Patient participation: No (Pt observed to be asleep) Family/SO/Caregiver participation: Yes Additional Comments: Pt reviewed and discussed in team meeting. Pt did not attend team meeting, pt observed to be asleep. pt's progress and bx on the unit reviewed and discussed. Pt is clinically stable and pending transfer to accepting facility, [facility]. Pt is less irritable and agitated with re-directed. No aggressive/ assaultive bx's exhibited. Pt's memory is impaired and remains confused. Pt wandering into other's pt's rooms. Pt is compliant with prescribed medications, crushed in food. Pt's medications reviewed and discussed. Pt's guardian, Aguilar Fernandez is involved and visits pt on the unit. Tx plan reviewed. Eulogio SAHNI will continue to follow case. - Problem Agitated/aggressive behavior Date Initiated: 11/11/17 Time Initiated: 20:55 Progress toward outcomes: resolved (Pt has periods of irritability and agitation when re-directed. No physical aggression noted.) Date resolved: 01/03/18 Medication nonadherence Date Initiated: 11/11/17 Time Initiated: 20:58 Progress toward outcomes: resolved (Pt is compliant with medications when crushed and put in food.) Date resolved: 12/27/17 - Discharge / Continuing Care Discharge to:: Snf (Pt was clinically and financally accepted at [facility]. Pt is pending certificate from the Surrogate's Office in order for guardian to have access to pt's funds.) Behavioral Health Services: Other (Medication management; secured unit) Health Needs: Doctor appointments, Special equipment, Medications/Rx
--- NOTE | 2018-01-06 16:28 | PCM.PYCHPN ---
Psychiatric Progress Note - Psychiatric Progress Note Patient seen today, length of contact: Patient evaluated, case discussed with team, chart reviewed Patient Chief Complaint: pt seen about unit then in room, pacing at times but other times smiling, pt. was assisted partial bathing. pt appears baseline cognitive function confused requires redirection pending ltc.. Problems Identified/Issues Discussed: baseline cognitive function requires total pending ltc placement, requires total care Medical Problems: per chart Diagnostic Results: per psychiatry per medicine per nursing per social work per recreational therapy DSM 5 Symptoms Update: requires total care baseline cognitive function Medication Change: No Medical Record Reviewed: Yes Consults ordered or reviewed: pt seen by hospitalist Mental Status Examination - Cognitive Function Orientation: Person Memory: Impaired Attention: Poor Concentration: Poor Association: Loose Fund of Knowledge: Poor Decription of patient's judgement and insights: poor - Mood Mood: Neutral - Affect Affect: Broad - Speech Speech: Appropriate, Soft - Formal Thought Process Formal Thought Process: Loosening of associations - Suicidal Ideation Suicidal Ideation: No - Homicidal Ideation Homicidal Ideation: No Goal/Treatment Plan - Goal/Treatment Plan Need for Continued Stay: Severe functional impairment Progress Toward Problem(s) and Goals/Treatment Plan: inpt milieu clinical observation and vital signs per protocol and per clinical status adjust meds per status requires total care structure ltc pt has guardian pending placement ltc Estimated Date of D/C: 01/12/18 - Smoking Cessation Smoking Cessation Initiated: No Reason for not providing: pt defers
[2018-01-07] MEDS: Pantoprazole 40 mg EC Tab PO SCH (08:24)
[2018-01-07] MEDS: Divalproex 125 mg Sprinkle Capsule PO SCH ×2 (08:24→16:59)
[2018-01-07] MEDS: Cholecalciferol 400 Intl Units Tab PO SCH (08:24)
--- NOTE | 2018-01-07 16:19 | PCM.PYCHPN ---
Psychiatric Progress Note - Psychiatric Progress Note Patient seen today, length of contact: Patient evaluated, case discussed with team, chart reviewed Patient Chief Complaint: pt seen about unit then in room, pacing at times but other times smiling, pt. was assisted partial bathing. pt appears baseline cognitive function confused requires redirection pending ltc.. Problems Identified/Issues Discussed: baseline cognitive function requires total pending ltc placement, requires total care Medical Problems: per chart Diagnostic Results: per psychiatry per medicine per nursing per social work per recreational therapy DSM 5 Symptoms Update: baseline cognitive function requires total care pending placement ltc Medication Change: No Medical Record Reviewed: Yes Consults ordered or reviewed: pt. seen by hospitalist Mental Status Examination - Cognitive Function Orientation: Person Memory: Impaired Attention: Poor Concentration: Poor Association: Loose Fund of Knowledge: Poor Decription of patient's judgement and insights: poor - Mood Mood: Neutral - Affect Affect: Broad - Speech Speech: Appropriate, Soft - Formal Thought Process Formal Thought Process: Loosening of associations - Suicidal Ideation Suicidal Ideation: No - Homicidal Ideation Homicidal Ideation: No Goal/Treatment Plan - Goal/Treatment Plan Need for Continued Stay: Severe functional impairment Progress Toward Problem(s) and Goals/Treatment Plan: inpt milieu clinical observation and vital signs per protocol and per clinical status adjust meds per status requires total care structure ltc pt has guardian pending placement ltc Estimated Date of D/C: 01/12/18 - Smoking Cessation Smoking Cessation Initiated: No Reason for not providing: pt defers
[2018-01-08] MEDS: Divalproex 125 mg Sprinkle Capsule PO SCH ×2 (08:40→17:30)
[2018-01-08] MEDS: Cholecalciferol 400 Intl Units Tab PO SCH (08:41)
[2018-01-08] MEDS: Pantoprazole 40 mg EC Tab PO SCH (08:41)
--- NOTE | 2018-01-08 12:08 | PCM.PYCHPN ---
Psychiatric Progress Note - Psychiatric Progress Note Patient seen today, length of contact: Patient evaluated, case discussed with team, chart reviewed Patient Chief Complaint: I am fine Problems Identified/Issues Discussed: pt seen in bed, confused , oriented to person only , no behavioral disturbances reported by staff , no noted side effects of medications, no reported S/HI DSM 5 Symptoms Update: major neurocognitive disorder with behavioral disturbances Medication Change: No Medical Record Reviewed: Yes Mental Status Examination - Cognitive Function Orientation: Person Memory: Impaired Attention: Poor Concentration: Poor Association: Loose Fund of Knowledge: Poor - Mood Mood: Neutral - Affect Affect: Broad - Speech Speech: Appropriate, Soft - Formal Thought Process Formal Thought Process: Loosening of associations - Suicidal Ideation Suicidal Ideation: No - Homicidal Ideation Homicidal Ideation: No Goal/Treatment Plan - Goal/Treatment Plan Need for Continued Stay: Severe functional impairment Progress Toward Problem(s) and Goals/Treatment Plan: continue with current medications group and supportive therapy Estimated Date of D/C: 01/12/18
[2018-01-09] MEDS: Divalproex 125 mg Sprinkle Capsule PO SCH ×2 (08:46→18:26)
[2018-01-09] MEDS: Cholecalciferol 400 Intl Units Tab PO SCH (08:46)
[2018-01-09] MEDS: Pantoprazole 40 mg EC Tab PO SCH (08:46)
--- NOTE | 2018-01-09 12:41 | PCM.PYCHPN ---
Psychiatric Progress Note - Psychiatric Progress Note Patient seen today, length of contact: Patient evaluated, case discussed with team, chart reviewed Patient Chief Complaint: I need some sleep Problems Identified/Issues Discussed: pt seen in bed, reported feeling fine, resting ,continues to be confused , oriented to person only , no behavioral disturbances reported by staff , no noted side effects of medications, no reported S/HI DSM 5 Symptoms Update: major neurocognitive disorder with behavioral disturbances Medication Change: No Medical Record Reviewed: Yes Mental Status Examination - Cognitive Function Orientation: Person Memory: Impaired Attention: Poor Concentration: Poor Association: Loose Fund of Knowledge: Poor - Mood Mood: Neutral - Affect Affect: Broad - Speech Speech: Appropriate, Soft - Formal Thought Process Formal Thought Process: Loosening of associations - Suicidal Ideation Suicidal Ideation: No - Homicidal Ideation Homicidal Ideation: No Goal/Treatment Plan - Goal/Treatment Plan Need for Continued Stay: Severe functional impairment Progress Toward Problem(s) and Goals/Treatment Plan: continue with current medications group and supportive therapy Estimated Date of D/C: 01/12/18
[2018-01-09] MEDS: Alum-Mag Hydrox-Simethicone Susp (30 mL) PO PRN (20:01)
[2018-01-10 06:32] VITALS: TEMP 97.1
[2018-01-10] MEDS: Divalproex 125 mg Sprinkle Capsule PO SCH ×2 (08:57→16:58)
[2018-01-10] MEDS: Pantoprazole 40 mg EC Tab PO SCH (08:58)
[2018-01-10] MEDS: Cholecalciferol 400 Intl Units Tab PO SCH (08:58)
--- NOTE | 2018-01-10 16:25 | PCM.PYCHPN ---
Psychiatric Progress Note - Psychiatric Progress Note Patient seen today, length of contact: Patient evaluated, case discussed with team, chart reviewed Patient Chief Complaint: at desk entering nursing station responds to redirection, interaction with staff smiling at times, speaks of remote memories, adherent with treatment, appears to be baseline cognitive function Problems Identified/Issues Discussed: severe neuro degenerative disease behavioral disturbance cognitive function requires total care pending ltc placement, requires total care Medical Problems: per chart Diagnostic Results: per psychiatry per medicine per nursing per social work per recreational therapy DSM 5 Symptoms Update: severe neurogenerative disease cognitive impairment requires total care Medication Change: No Medical Record Reviewed: Yes Consults ordered or reviewed: pt seen by hospitalist Mental Status Examination - Cognitive Function Orientation: Person Memory: Impaired Attention: Poor Concentration: Poor Association: Loose Fund of Knowledge: Poor Decription of patient's judgement and insights: poor - Mood Mood: Neutral - Affect Affect: Broad - Speech Speech: Appropriate, Soft - Formal Thought Process Formal Thought Process: Loosening of associations - Suicidal Ideation Suicidal Ideation: No - Homicidal Ideation Homicidal Ideation: No Goal/Treatment Plan - Goal/Treatment Plan Need for Continued Stay: Severe functional impairment Progress Toward Problem(s) and Goals/Treatment Plan: inpt milieu clinical observation and vital signs per protocol and per clinical status adjust meds per status requires total care structure ltc pt has guardian pending placement ltc Estimated Date of D/C: 01/12/18 - Smoking Cessation Smoking Cessation Initiated: No Reason for not providing: pt defers
[2018-01-11] MEDS: Divalproex 125 mg Sprinkle Capsule PO SCH ×2 (09:35→17:32)
[2018-01-11] MEDS: Pantoprazole 40 mg EC Tab PO SCH (09:36)
[2018-01-11] MEDS: Cholecalciferol 400 Intl Units Tab PO SCH (09:36)
--- NOTE | 2018-01-11 15:11 | PCM.PYCHPN ---
Psychiatric Progress Note - Psychiatric Progress Note Patient seen today, length of contact: Patient evaluated, case discussed with team, chart reviewed Patient Chief Complaint: at desk entering nursing station responds to redirection, interaction with staff smiling at times, speaks of remote memories, adherent with treatment, appears to be baseline cognitive function Problems Identified/Issues Discussed: severe neuro degenerative disease behavioral disturbance cognitive function requires total care pending ltc placement, requires total care Medical Problems: per chart Diagnostic Results: per psychiatry per medicine per nursing per social work per recreational therapy DSM 5 Symptoms Update: seen at nursing station, groomed, hair pulled back, staff report adherent with adls Medication Change: No Medical Record Reviewed: Yes Consults ordered or reviewed: pt seen by hospitalist Mental Status Examination - Cognitive Function Orientation: Person Memory: Impaired Attention: WNL Concentration: Poor Association: Loose Fund of Knowledge: Poor Decription of patient's judgement and insights: poor - Mood Mood: Neutral - Affect Affect: Broad - Speech Speech: Appropriate, Soft - Formal Thought Process Formal Thought Process: Loosening of associations - Suicidal Ideation Suicidal Ideation: No - Homicidal Ideation Homicidal Ideation: No Goal/Treatment Plan - Goal/Treatment Plan Need for Continued Stay: Severe functional impairment Progress Toward Problem(s) and Goals/Treatment Plan: inpt milieu clinical observation and vital signs per protocol and per clinical status adjust meds per status requires total care structure ltc pt has guardian pending placement ltc Estimated Date of D/C: 01/12/18 - Smoking Cessation Smoking Cessation Initiated: No
[2018-01-11 16:27] VITALS: RESP 20
[2018-01-12] MEDS: Pantoprazole 40 mg EC Tab PO SCH (08:36)
[2018-01-12] MEDS: Divalproex 125 mg Sprinkle Capsule PO SCH ×2 (08:36→17:19)
[2018-01-12] MEDS: Cholecalciferol 400 Intl Units Tab PO SCH (08:40)
--- NOTE | 2018-01-12 15:22 | PCM.PYCHPN ---
Psychiatric Progress Note - Psychiatric Progress Note Patient seen today, length of contact: Patient evaluated, case discussed with team, chart reviewed Patient Chief Complaint: at desk entering nursing station responds to redirection, interaction with staff smiling at times, speaks of remote memories, adherent with treatment, appears to be baseline cognitive function Problems Identified/Issues Discussed: severe neuro degenerative disease behavioral disturbance cognitive function requires total care pending ltc placement, requires total care Medical Problems: per chart Diagnostic Results: per psychiatry per medicine per nursing per social work per recreational therapy DSM 5 Symptoms Update: baseline cognitive function severe significant cognitive impaired Medication Change: No Medical Record Reviewed: Yes Consults ordered or reviewed: pt seen by hospitalist Mental Status Examination - Cognitive Function Orientation: Person Memory: Impaired Attention: WNL Concentration: Poor Association: Loose Fund of Knowledge: Poor Decription of patient's judgement and insights: poor - Mood Mood: Neutral - Affect Affect: Broad - Speech Speech: Appropriate, Soft - Formal Thought Process Formal Thought Process: Loosening of associations - Suicidal Ideation Suicidal Ideation: No - Homicidal Ideation Homicidal Ideation: No Goal/Treatment Plan - Goal/Treatment Plan Need for Continued Stay: Severe functional impairment Progress Toward Problem(s) and Goals/Treatment Plan: inpt milieu clinical observation and vital signs per protocol and per clinical status adjust meds per status requires total care structure ltc pt has guardian pending placement ltc Estimated Date of D/C: 01/12/18 - Smoking Cessation Smoking Cessation Initiated: No Reason for not providing: pt defers
[2018-01-13] MEDS: Divalproex 125 mg Sprinkle Capsule PO SCH (08:55)
[2018-01-13] MEDS: Pantoprazole 40 mg EC Tab PO SCH (08:56)
[2018-01-13] MEDS: Cholecalciferol 400 Intl Units Tab PO SCH (08:56)
--- NOTE | 2018-01-13 09:38 | PCM.PYCHDC ---
Mental Status Examination - Mental Status Examination Orientation: Person Memory: Impaired Mood: Euphoric Affect: Broad Speech: Soft Attention: Poor Concentration: Poor Association: Loose Fund of Knowledge: Poor Formal Thought Process: No Impairment Description of patient's judgement and insight: baseline cognitive function severly impairedl Psychotic Thoughts and Behaviors: none apparent Suicidal Ideation: No Current Homicidal Ideation?: No Discharge Summary - Discharge Note Reason for Hospitalization: change in mental status initially treated for uti possible delirium resulting increased changes in mental status Psychiatric History (includes Medical, Family, Personal Hx): pt was brought to er from halfway 2nd to increased aggitation Laboratory Data: per chart Consultations:: List each consultation separately and include: 1. Reason for request. 2. Findings. 3. Follow-up Consultations: pt seen by hospitalist pt seen by neurology Summary of Hospital Course include:: 1. Description of specific treatment plan utilized for patients during their course of treatmen. 2. Summarize the time- course for resolution of acute symptoms and/or regressed behaviors. 3. Describe issues identified and worked on during hospitalization. 4. Describe medication utilized. 5. Describe medical problems identified and treated. 6. Reassessment of suicide risk Summary of Hospital Course: was admitted to [facility] via em[facility] from [facility]. pt was living with boyfriend. there was a change in mental status. pt. initially treated at [facility] 2nd to uti. and then referred to [facility] assisted living facitily. upon arrival at facility patient became agitated and was brought [facility] for evaluation. pt was voluntarily. pt was evaluated by psychiatrist. pt was evaluated by hospitalist and neurology. medications were initiated and titrated according to clinical status. pt participated in milieu therapy. pt appears to have reached baseline cognitive status severe impaired. Pt. requires total care. - Final Diagnosis (DSM 5) Condition upon Discharge: FAIR Disposition: TRANSF TO SNF Follow-up Treatment Plan: pt to be discharged and transferred to ltc facility - Smoking Cessation Smoking Cessation Medication prescribed: No Reason for not providing: pt deferred - Antipsychotic Medications Pt discharged on 2 or more routine antipsychotic medications: No
[2018-01-13 13:05] VITALS: BP 126/66; PULSE 100; O2SAT 20
== END 2018-01-13 12:15 | DRG 884 ==
LOC: H.ER 19:44 → H.ERHOLD 20:05 → H.STEP 20:34
PROVIDERS: ADMIT Psychiatry & Neurology Psychiatry; ATTEND Psychiatry & Neurology Psychiatry
PROC: GZHZZZZ Group Psychotherapy (ICD-10-PCS; principal; 2017-11-11)
PROC: GZ56ZZZ Individual Psychotherapy, Supportive (ICD-10-PCS; 2017-11-11)
DX: F01.51 Vascular dementia, unspecified severity, with behavioral disturbance (principal); N39.0 Urinary tract infection, site not specified; G40.909 Epilepsy, unspecified, not intractable, without status epilepticus; Z91.040 Latex allergy status; E78.5 Hyperlipidemia, unspecified; K21.9 Gastro-esophageal reflux disease without esophagitis; R32 Unspecified urinary incontinence